=== PATIENT | female | born 1935 | race Caucasian/White ===

== ENCOUNTER 2018-07-17 13:01 | Inpatient (IN) | payer MEDICARE, OTHER ==
[~2018-07-17] VITALS: Ht 157.5 cm; Wt 102.5 kg
--- NOTE | 2018-07-17 13:12 | ERD ---
ER Documentation Chief Complaint Chief Complaint Generalized weakness HPI The patient is a 82-year-old female, in the ER because of generalized weakness intermittently for the last couple days, worse today, complains of black stool for the last couple days. She recently had an upper endoscopy last week that did not show any significant findings according to her daughter. She denies fever, chills, cough, neck pain, chest pain, complains of dyspnea on exertion, denies abdominal pain, vomiting, dysuria, diarrhea. Medical history: Atrial fibrillation, diabetes mellitus, hypertension, dyslipidemia, CAD Past surgical history: None ROS All systems reviewed and are negative except as per history of present illness. Medications Home Meds Reported Medications Zolpidem Tartrate* (Zolpidem Tartrate*) 10 Mg Tablet, 10 MG PO QHS PRN for INSOMNIA, #30 TAB 07/17/18 Insulin Lispro (Humalog Kwikpen U-100) 100 Unit/1 Ml Insuln.pen, 8 UNIT SQ BID WITH MEALS, EA 07/17/18 Insulin Glargine* (Lantus*) 100 Unit/Ml Soln, 44 UNIT SC QHS, #1 VIAL 07/17/18 Furosemide* (Furosemide*) 80 Mg Tablet, 80 MG PO DAILY, #30 TAB 07/17/18 Metolazone* (Metolazone*) 5 Mg Tablet, 5 MG PO DAILY, TAB 07/17/18 Potassium Chloride* (K-Dur*) 10 Meq Tab.prt.sr, 10 MEQ PO DAILY, TAB 07/17/18 Alprazolam* (Alprazolam*) 0.5 Mg Tablet, 0.5 MG PO QHS PRN for ANXIETY, TAB 07/17/18 Atorvastatin Calcium* (Atorvastatin Calcium*) 20 Mg Tablet, 20 MG PO QHS, #30 TAB 07/17/18 Ferrous Sulfate* (Ferrous Sulfate*) 325 Mg Tabec, 325 MG PO BID, TAB 07/17/18 Sertraline Hcl* (Sertraline Hcl*) 50 Mg Tablet, 50 MG PO DAILY, #30 TAB 07/17/18 Carvedilol* (Carvedilol*) 3.125 Mg Tablet, 3.125 MG PO BID, #60 TAB 07/17/18 Pantoprazole* (Protonix*) 40 Mg Tablet.dr, 40 MG PO DAILY, TAB 07/17/18 Allergies Allergies: Coded Allergies: No Known Allergy (Unverified , 07/17/18) Physical Exam Vitals Vital Signs Date Temp Pulse Resp B/P (MAP) Pulse Ox O2 O2 Flow FiO2 Time Delivery Rate 07/17/18 98.2 89 18 123/43 94 13:37 (69) 07/17/18 84 18 123/43 98 Nasal 13:10 (69) Cannula Physical Exam Const: No acute distress. Head: Atraumatic. Eyes: Normal Conjunctiva. ENT: Normal External Ears, Nose and Mouth. Neck: Full range of motion. No meningismus. Resp: Irregularly irregular. Cardio: Regular rate and rhythm. Abd: Soft, non distended, normal bowel sounds, non tender. Skin: No petechiae or rashes. Back: No midline or flank tenderness. Ext: Mild Bilateral leg edema, no calf tenderness Neur: Awake and alert. No focal deficit Psych: Normal Mood and Affect. Result Diagram: 07/17/18 1345 07/17/18 1345 Results 24 hrs Laboratory Tests Test 07/17/18 13:45 White Blood Count 7.2 10^3/ul Red Blood Count 2.78 10^6/ul Hemoglobin 6.9 g/dl Hematocrit 23.5 % Mean Corpuscular Volume 84.5 fl Mean Corpuscular Hemoglobin 24.8 pg Mean Corpuscular Hemoglobin Concent 29.4 g/dl Red Cell Distribution Width 14.8 % Platelet Count 336 10^3/UL Mean Platelet Volume 11.4 fl Immature Granulocytes % 0.400 % Neutrophils % 63.2 % Segmented Neutrophils % (Manual) 68 % Lymphocytes % 18.8 % Lymphocytes % (Manual) 18 % Reactive Lymphocytes % (Manual) 2 % Monocytes % 13.8 % Monocytes % (Manual) 11 % Eosinophils % 3.1 % Eosinophils % (Manual) 1 % Basophils % 0.7 % Nucleated Red Blood Cells % 0.0 /100WBC Immature Granulocytes # 0.030 10^3/ul Neutrophils # 4.6 10^3/ul Lymphocytes (Manual) 1.2 10^3/ul Lymphocytes # 1.4 10^3/ul Reactive Lymphocytes # 0.1 10^3/ul Monocytes # 1.0 10^3/ul Monocytes # (Manual) 0.7 10^3/ul Eosinophils # 0.2 10^3/ul Basophils # 0.1 10^3/ul Nucleated Red Blood Cells # 0.0 10^3/ul White Cell Morphology Comment @See below Platelet Estimate NORMAL Giant Platelets 8 % Polychromasia 3+ Hypochromasia 3+ Poikilocytosis 1+ Anisocytosis 1+ Microcytosis 1+ Red Cell Morphology Comment @See below Prothrombin Time 14.1 Sec Prothrombin Time Ratio 1.1 INR International Normalized Ratio 1.08 Activated Partial Thromboplast Time 30.1 Sec Sodium Level 139 mmol/L Potassium Level 3.6 mmol/L Chloride Level 93 mmol/L Carbon Dioxide Level 35 mmol/L Anion Gap 11 Blood Urea Nitrogen 80 mg/dl Creatinine 2.04 mg/dl Est Glomerular Filtrat Rate mL/min mL/min Glucose Level 177 mg/dl Calcium Level 8.8 mg/dl Troponin I < 0.012 ng/ml B-Type Natriuretic Peptide 6120 PG/ML Free Thyroxine 2.07 ng/dl Procedures/[place] [address] Radiology Main Line: [phone] DIAGNOSTIC IMAGING REPORT Patient: TYLOR COLEMAN : 1935 Age: 82 Sex: F MR #: [id number] DOS: 07/17/18 1331 Ordering MD: DULCE ESTRADA MD Location: E/R Room/Bed: PROCEDURE: XR Chest. CLINICAL INDICATION: Shortness of breath TECHNIQUE: An AP view of the chest was obtained. COMPARISON: CR CHEST 11/22/2017; CR CHEST 11/07/2017; SD DX CHEST 11/04/2017; SD CR CHEST 08/31/2017; SD CR CHEST 08/30/2017; SD DX CHEST 01/19/2015 FINDINGS: There is prominence of the interstitial and central pulmonary vascular markings with small bilateral pleural effusions. No focal airspace opacification or pneumothorax is seen. The cardiomediastinal silhouette is mildly enlarged. Calcifications are seen within the aortic arch. The osseous structures demonstrate senescent changes. IMPRESSION: 1. Findings suggestive of pulmonary vascular congestion with small bilateral pleural effusions. Findings are mildly increased when compared to the prior examination. 2. Mild cardiomegaly and aortic atherosclerosis. RPTAT: HH .Aarti Dumont MD, MD Date Time Electronically viewed and signed by .Aarti Dumont MD, MD on 07/17/2018 14:24 .G/ CC: DULCE ESTRADA MD [phone] EKG: Read by emergency physician Rate/Rhythm: Atrial fibrillation 81 beats/min QRS, ST, T-waves: No ST elevation, RWA, low voltage, nonspecific T abnormality Impression: Abnormal EKG MEDICAL MAKING DECISION: The patient is a 82-year-old female, presenting with acute GI bleed, acute CHF, acute kidney injury. She was treated with 2 unit of packed red blood cell for acute GI bleed, she would require Lasix in between and after blood transfusion The differential diagnoses considered include but are not limited to gi bleed, asthma, COPD, pneumonia, pulmonary embolus, pleural effusion, congestive heart failure. Departure Diagnosis: Primary Impression: GI bleed Additional Impressions: CHF (congestive heart failure) JAIRON (acute kidney injury) Anemia Condition: Stable Comments I discussed the findings with the patient. I discussed the patient with the hospitalist Xavi at 3:10 pm who was made aware of the lab, the treatment, the patient condition. The patient is admitted to Tel Disclaimer: Inadvertent spelling and grammatical errors are likely due to EHR/dictation software use and do not reflect on the overall quality of patient care. Also, please note that the electronic time recorded on this note does not necessarily reflect the actual time of the patient encounter. DULCE ESTRADA MD Jul 17, 2018 13:12
[2018-07-17] MEDS ORDERED: CARV3.1260 PO (13:56)
[2018-07-17] MEDS ORDERED: PANT40TA3 PO (13:56)
[2018-07-17] MEDS ORDERED: SERT50TA6 PO (13:57)
[2018-07-17] MEDS ORDERED: FER325 PO (13:57)
[2018-07-17] MEDS ORDERED: ATOR20TA38 PO (13:57)
[2018-07-17] MEDS ORDERED: POTA10TA37 PO (13:58)
[2018-07-17] MEDS ORDERED: ALPR0.5T6 PO (13:58)
[2018-07-17] MEDS ORDERED: METO5TAB65 PO (13:58)
[2018-07-17] MEDS ORDERED: FURO80TA3 PO (13:59)
[2018-07-17] MEDS ORDERED: INSU100I12 SQ (13:59)
[2018-07-17] MEDS ORDERED: LANT3I SC (13:59)
[2018-07-17] MEDS ORDERED: ZOLP10TA5 PO (14:00)
[2018-07-17] MEDS ORDERED: ONDANSETRON 4 MG INJ IV PRN (15:30)
[2018-07-17] MEDS ORDERED: ALPRAZOLAM 0.5 MG TAB PO PRN (15:30)
[2018-07-17] MEDS ORDERED: ALBUTEROL/IPRATROPIUM (NEB) 3 ML AMP HHN PRN (15:30)
[2018-07-17] MEDS ORDERED: NITROGLYCERIN (SL) 0.4 MG TAB SL PRN (15:30)
[2018-07-17] MEDS ORDERED: LORAZEPAM 2 MG INJ IV PRN (15:30)
[2018-07-17] MEDS ORDERED: MAGNESIUM HYDROXIDE 30ML CUP PO PRN (15:30)
[2018-07-17] MEDS ORDERED: DOCUSATE SODIUM 100 MG CAP PO PRN (15:30)
[2018-07-17] MEDS ORDERED: HYDROCODONE/APAP (5/325) TAB PO PRN (15:30)
[2018-07-17] MEDS ORDERED: ACETAMINOPHEN 325 MG TAB PO PRN (15:30)
[2018-07-17] MEDS ORDERED: NACL 0.9% 3 ML SYG IV SCH (15:30)
[2018-07-17] MEDS ORDERED: ZOLPIDEM 5 MG TAB PO PRN (15:30)
[2018-07-17] MEDS ORDERED: morphine 2 MG INJ IV PRN (15:30)
[2018-07-17] MEDS ORDERED: hydrALAzine 20 MG INJ IV PRN (15:30)
--- NOTE | 2018-07-17 16:21 | HP ---
DATE OF ADMISSION: 07/17/2018 IDENTIFICATION: This is an 82-year-old. CHIEF COMPLAINT: Sent in for anemia. HISTORY OF PRESENT ILLNESS: An 82-year-old female with past medical history of diabetes, history of gastric ulcer with 6 EGDs done in the last year for bleeding gastric ulcer apparently, high cholester ol, CHF. The patient was sent in because of abnormal hemoglobin in blood test which was performed 2 days ago at home. The patient states she had EGD performed 10 days ago in [place] by Dr. Edgar. Th is was because of a bleeding gastric ulcer that was lasered treated according to the patient. Since that time, she has been having off and on dark stools, but no upper GI bleeding, no fevers or chills or nausea, vomiting, diarrhea or constipation. No chest pain or shortness of breath. She has had, h owever, positive lower extremity swelling as well. When she had the blood test done at home 48 hours ago, the results came back and she was told to come to the ER because of low hemoglobin. When she a rrived today to the ER, her hemoglobin today is 6.9. She has been ordered for 2 units PRBC transfusi on today. She was also found with BNP of 6000 and chest x-ray shows signs of pulmonary vascular melquiades estion as well. Her creatinine today is 2.04. The patient denies any prior history of any strokes o r heart attacks, no prior history of any kidney problems. She has had multiple blood transfusions in the past for anemia. Again, she states she has had [address] Edgar in the last year for the shea e gastric bleeding ulcer each time treated with laser. PAST MEDICAL HISTORY: As stated above. ALLERGIES: NO KNOWN DRUG ALLERGIES. HOME MEDICATIONS: 1. Atorvastatin 20 mg. 2. Ferrous sulfate 325 mg b.i.d. 3. Coreg 3.125 mg b.i.d. 4. Alprazolam 0.5 mg p.o. at bedtime p.r.n. 5. Sertraline 50 mg daily. 6. Ambien 10 mg at bedtime p.r.n. 7. Lasix 80 mg p.o. daily. 8. Metolazone 5 mg daily. 9. K-Dur 10 mEq daily. 10. Protonix 40 mg p.o. daily. 11. Lantus 44 units at bedtime. 12. Lispro 8 units b.i.d. with meals. PAST SURGICAL HISTORY: Breast lump surgery. FAMILY HISTORY: Noncontributory. SOCIAL HISTORY: Negative for smoking, drinking or IV drug abuse. PHYSICAL EXAMINATION: VITAL SIGNS: T-max 98.2, pulse 89, respirations 18, blood pressure 123/43, satting at 94% on room ai r. GENERAL: The patient is lying in bed, family members at the bedside, in no acute distress. HEENT: Pupils are equal, round, reactive to light. Extraocular muscles are intact. NECK: Supple. No thyromegaly. LUNGS: Clear to auscultation bilaterally. CARDIOVASCULAR: S1, S2 heard. No rubs or gallops. ABDOMEN: Soft, nontender, nondistended, normal bowel sounds, no rebound or guarding. MUSCULOSKELETAL: A 1 to 2+ pitting edema bilateral lower extremities to the mid calves. NEUROLOGIC: No focal deficits. LABORATORIES: WBC 7.2, hemoglobin 6.9, hematocrit 23.5, platelets 336. Sodium 139, potassium 3.6, c hloride 93, CO2 of 35, BUN 80, creatinine 2.04, glucose 177. BNP 6120. Troponin is negative x1. Co ags are normal. DIAGNOSTIC DATA: Chest x-ray again shows pulmonary vascular congestion with small bilateral pleural effusions, mild cardiomegaly, aortic atherosclerosis. ASSESSMENT AND PLAN: An 82-year-old female coming in with anemia, likely secondary to gastrointestin al bleed, also signs of acute tubular injury, acute congestive heart failure exacerbation. 1. Anemia: Again likely secondary to gastrointestinal bleed given the patient's prior history of ga stric ulcer and 6 EGDs in the last year for treatment of this. Admit the patient, order 2 units PRBC transfusion. Follow up TSH, A1c, lipid panel. Also, get GI consult as well. Get PT, OT and speech therapy consult. Consider ordering stool occult test. The patient likely will need another EGD. W e will discuss with the GI team as well. Hold all anticoagulants. Hold off on IV fluids at this mandie e given the fact the patient is in acute congestive heart failure. Follow up CBC in the morning post -transfusion. 2. Acute kidney injury. Again, the patient denies any prior history of kidney issues. She is on 80 mg of Lasix p.o. daily. Given the patient is in congestive heart failure exacerbation, we will go a head and cautiously order Lasix IV b.i.d. for now. Monitor ins and outs. Insert Muhammad catheter and monitor urine output. Again, we will get renal consult as well. Monitor BUN and creatinine levels. 3. Congestive heart failure. Again, BNP 6000. The patient does see Dr. Alcantara in [place] for treatme nt of congestive heart failure in the past. No prior history of any stroke or heart attack per patie nt. We are going to keep the bed head of the bed greater than 30 degrees. Monitor ins and outs and daily weights. Keep her on low-dose beta elliott and low-dose IV Lasix, morphine p.r.n., oxygen as n eeded. Nitroglycerin p.r.n. PT and OT consults. Get a cardiology consult. Order a 2D echocardiogr am as well. 4. History of high cholesterol. Follow up lipid panel. Continue statin. 5. History of diabetes. Follow up A1c. Continue home insulins and add sliding scale insulin. 6. Deep venous thrombosis prophylaxis. Hold all anticoagulants. Order SCDs. Dictated By: KARYN MEDINA/ANGEL Conf#: [id number] DID#: [id number] CC: DULCE ESTRADA MD; LANDON LEVI DO;*EndCC*
[2018-07-17] MEDS ORDERED: GLUCOSE GEL 15 GRAM TUBE BUCCAL PRN (16:30)
[2018-07-17] MEDS ORDERED: GLUCAGON 1 MG INJ IM PRN (16:30)
[2018-07-17] MEDS ORDERED: GLUCOSE GEL 15 GRAM TUBE PO PRN ×2 (16:30)
[2018-07-17] MEDS ORDERED: DEXTROSE 50% 50 ML SYRINGE IV PRN ×2 (16:30)
--- NOTE | 2018-07-17 16:30 | CONS ---
Assessment/Plan Assessment/Plan Hospital Course (Demo Recall) Summary Assessment and Plan: Assessment: Severe Recurrent UGIB from same gastric ulcer - With multiple EGD Renal insufficiency CHF HTN DM Plan: PPI /Carafate 2 units PRBCs- ordered Monitor H/H and assess for overt signs of GI bleed Patient/Family currently decline EGD- would like to give blood, monitor over night, and reassess tomorrow for possible EGD in near future 2D echo pending Cardiology/Nephrology have been consulted Patient seen in collaboration with Dr. Snyder CC: KERWIN SNYDER MD ; Consultation Date/Type/Reason Admit Date/Time Date of Consultation: Jul 17, 2018 Type of Consult GI Reason for Consultation Severe anemia/melena Date/Time of Note DATE: 07/17/18 TIME: 16:06 Hx of Present Illness This is an 82 year old female with PMH of CFH, DM, HTN, and recurrent UGIB from same gastric ulcer, who presented to the ED with severe anemia and melena x7 days. She has apparently had 6-7 EGDs in the past year, with the last EGD being about 10 days ago with intervention to stop gastric ulcer bleeding. Labs drawn h ere show hemoglobin 6.9, hematocrit 23.5, MCV 84.5, MCH 24.8. GI has been consulted to rule out upper GI bleed. At time evaluation patient is resting in bed in no apparent distress. with daughter at bedside. Pt denies n/v, abd pain, or hematochezia. I discussed recommendations for EGD. Daughter and patient currently declined to move forward with EGD and instead would like to transfuse blood overnight, monitor, and reassess tomorrow for possible need for endoscopic evaluation/intervention in near future. Review of Systems: A 12 system, review was conducted and is negative except as noted in the HPI or here. Past Medical History Home Meds Reported Medications Zolpidem Tartrate* (Zolpidem Tartrate*) 10 Mg Tablet, 10 MG PO QHS PRN for INSOMNIA, #30 TAB 07/17/18 Insulin Lispro (Humalog Kwikpen U-100) 100 Unit/1 Ml Insuln.pen, 8 UNIT SQ BID WITH MEALS, EA 07/17/18 Insulin Glargine* (Lantus*) 100 Unit/Ml Soln, 44 UNIT SC QHS, #1 VIAL 07/17/18 Furosemide* (Furosemide*) 80 Mg Tablet, 80 MG PO DAILY, #30 TAB 07/17/18 Metolazone* (Metolazone*) 5 Mg Tablet, 5 MG PO DAILY, TAB 07/17/18 Potassium Chloride* (K-Dur*) 10 Meq Tab.prt.sr, 10 MEQ PO DAILY, TAB 07/17/18 Alprazolam* (Alprazolam*) 0.5 Mg Tablet, 0.5 MG PO QHS PRN for ANXIETY, TAB 07/17/18 Atorvastatin Calcium* (Atorvastatin Calcium*) 20 Mg Tablet, 20 MG PO QHS, #30 TAB 07/17/18 Ferrous Sulfate* (Ferrous Sulfate*) 325 Mg Tabec, 325 MG PO BID, TAB 07/17/18 Sertraline Hcl* (Sertraline Hcl*) 50 Mg Tablet, 50 MG PO DAILY, #30 TAB 07/17/18 Carvedilol* (Carvedilol*) 3.125 Mg Tablet, 3.125 MG PO BID, #60 TAB 07/17/18 Pantoprazole* (Protonix*) 40 Mg Tablet.dr, 40 MG PO DAILY, TAB 07/17/18 Medications Current Medications IV Flush (NS 3 ml) 3 ml PER PROTOCOL IV ; Start 07/17/18 at 15:30; Status UNV Ondansetron HCl (Zofran Inj) 4 mg Q6H PRN IV NAUSEA/VOMITING; Start 07/17/18 at 15:30 Acetaminophen (Tylenol Tab) 650 mg Q6H PRN PO .PAIN 1-3 OR TEMP; Start 07/17/18 at 15:30 Acetaminophen/ Hydrocodone Bitart ([place] (5/325)) 1 tab Q6H PRN PO .MOD PAIN 4- 6; Start 07/17/18 at 15:30 Morphine Sulfate (morphine) 2 mg Q4H PRN IV .SEVERE PAIN 7-10; Start 07/17/18 at 15:30 Docusate Sodium (Colace) 100 mg Q12H PRN PO .CONSTIPATION; Start 07/17/18 at 15:30 Magnesium Hydroxide (Milk Of Mag) 30 ml DAILY PRN PO .CONSTIPATION; Start 07/17/18 at 15:30; Status UNV Lorazepam (Ativan) 0.5 mg Q6H PRN IV ANXIETY; Start 07/17/18 at 15:30 Albuterol/ Ipratropium (Duoneb) 3 ml Q4H RESP THERAPY PRN HHN SHORTNESS OF BREATH; Start 07/17/18 at 15:30 Hydralazine HCl (Apresoline) 10 mg Q6H PRN IV ELEVATED BLOOD PRESSURE; Start 07/17/18 at 15:30 Nitroglycerin (Nitroglycerin (Sl Tab) 0.4 Mg) 1 tab Q5M PRN SL ANGINA; Start 07/17/18 at 15:30 Miscellaneous Information (* Miscellaneous Pharmacy Order) Discontinue current oral sulfonylur... ONCE ONCE XX ; Start 07/17/18 at 15:30; Stop 07/17/18 at 15:31; Status UNV Diagnostic Test (Pha) (Accu-Chek) 1 ea 02 XX ; Start 07/18/18 at 02:00 Miscellaneous Information (* Miscellaneous Pharmacy Order) HYPOGLYCEMIA PROTOCOL w... ONCE ONCE XX ; Start 07/17/18 at 15:30; Stop 07/17/18 at 15:31; Status UNV Insulin Aspart (Novolog Insulin Pen) NOVOLOG *MILD* ALGORI... Q4 SC ; Start 07/17/18 at 17:00; Status UNV Miscellaneous Information (* Miscellaneous Pharmacy Order) Discontinue all pr uzma... ONCE ONCE XX ; Start 07/17/18 at 15:30; Stop 07/17/18 at 15:31; Status UNV Alprazolam (Xanax) 0.5 mg QHS PRN PO ANXIETY; Start 07/17/18 at 15:30 Atorvastatin Calcium (Lipitor) 20 mg QHS PO ; Start 07/17/18 at 21:00 Carvedilol (Coreg) 3.125 mg BID PO ; Start 07/17/18 at 21:00 Ferrous Sulfate (Ferrous Sulfate (Ec)) 325 mg BID PO ; Start 07/17/18 at 21:00 Insulin Glargine (Lantus) 44 units QHS SC ; Start 07/17/18 at 21:00 Metolazone (Zaroxolyn) 5 mg DAILY PO ; Start 07/18/18 at 09:00; Status UNV Pantoprazole (Protonix Tab) 40 mg DAILY@0600 PO ; Start 07/18/18 at 06:00 Potassium Chloride (Klor-Con 10) 10 meq DAILY PO ; Start 07/18/18 at 09:00 Zolpidem Tartrate (Ambien) 10 mg QHS PRN PO INSOMNIA; Start 07/17/18 at 15:30 Miscellaneous Information 8 unit BID WITH MEALS SQ ; Start 07/17/18 at 18:00; Status UNV Furosemide (Lasix) 40 mg BID DIURETICS IV ; Start 07/17/18 at 18:00 Allergies: Coded Allergies: No Known Allergy (Unverified , 07/17/18) Social History Smoking Status: Never smoker Exam/Review of Systems Exam Vitals Vital Signs Date Temp Pulse Resp B/P (MAP) Pulse Ox O2 O2 Flow FiO2 Time Delivery Rate 07/17/18 98.2 89 18 123/43 94 13:37 (69) Exam PHYSICAL EXAMINATION: GENERAL: Alert & oriented x 3, in no acute distress SKIN: No lesions EYES: Pupils equal reactive to light NECK: Supple, no masses CHEST: Inspection within normal limits. CARDIOVASCULAR: Heart: Regular rate and rhythm RESPIRATORY: Lungs clear to auscultation and percussion, no wheezing, no rubs GASTROINTESTINAL AND LIVER: Abdomen: Soft, non tenderness, non-distended, no hernias, no masses, no organomegaly, no ascites, no guarding, no rebound tenderness, normoactive bowel sounds. Rectal: Deferred. EXTREMITIES: BLE edema Results Result Diagram: 07/17/18 1345 07/17/18 1345 Results 24hrs Laboratory Tests Test 07/17/18 13:45 White Blood Count 7.2 Red Blood Count 2.78 L Hemoglobin 6.9 *L Hematocrit 23.5 L Mean Corpuscular Volume 84.5 Mean Corpuscular Hemoglobin 24.8 L Mean Corpuscular Hemoglobin Concent 29.4 L Red Cell Distribution Width 14.8 H Platelet Count 336 Mean Platelet Volume 11.4 H Immature Granulocytes % 0.400 Neutrophils % 63.2 Segmented Neutrophils % (Manual) 68 Lymphocytes % 18.8 Lymphocytes % (Manual) 18 Reactive Lymphocytes % (Manual) 2 H Monocytes % 13.8 H Monocytes % (Manual) 11 Eosinophils % 3.1 Eosinophils % (Manual) 1 Basophils % 0.7 Nucleated Red Blood Cells % 0.0 Immature Granulocytes # 0.030 Neutrophils # 4.6 Lymphocytes (Manual) 1.2 Lymphocytes # 1.4 Reactive Lymphocytes # 0.1 H Monocytes # 1.0 H Monocytes # (Manual) 0.7 Eosinophils # 0.2 Basophils # 0.1 Nucleated Red Blood Cells # 0.0 White Cell Morphology Comment @See below Platelet Estimate NORMAL Giant Platelets 8 H Polychromasia 3+ Hypochromasia 3+ Poikilocytosis 1+ Anisocytosis 1+ Microcytosis 1+ Red Cell Morphology Comment @See below Prothrombin Time 14.1 Prothrombin Time Ratio 1.1 INR International Normalized Ratio 1.08 Activated Partial Thromboplast Time 30.1 Sodium Level 139 Potassium Level 3.6 Chloride Level 93 L Carbon Dioxide Level 35 H Anion Gap 11 Blood Urea Nitrogen 80 H Creatinine 2.04 H Est Glomerular Filtrat Rate mL/min Glucose Level 177 Calcium Level 8.8 Troponin I < 0.012 B-Type Natriuretic Peptide 6120 H Medications Medication Current Medications IV Flush (NS 3 ml) 3 ml PER PROTOCOL IV ; Start 07/17/18 at 15:30; Status UNV Ondansetron HCl (Zofran Inj) 4 mg Q6H PRN IV NAUSEA/VOMITING; Start 07/17/18 at 15:30 Acetaminophen (Tylenol Tab) 650 mg Q6H PRN PO .PAIN 1-3 OR TEMP; Start 07/17/18 at 15:30 Acetaminophen/ Hydrocodone Bitart ([place] (5/325)) 1 tab Q6H PRN PO .MOD PAIN 4- 6; Start 07/17/18 at 15:30 Morphine Sulfate (morphine) 2 mg Q4H PRN IV .SEVERE PAIN 7-10; Start 07/17/18 at 15:30 Docusate Sodium (Colace) 100 mg Q12H PRN PO .CONSTIPATION; Start 07/17/18 at 15:30 Magnesium Hydroxide (Milk Of Mag) 30 ml DAILY PRN PO .CONSTIPATION; Start 07/17/18 at 15:30; Status UNV Lorazepam (Ativan) 0.5 mg Q6H PRN IV ANXIETY; Start 07/17/18 at 15:30 Albuterol/ Ipratropium (Duoneb) 3 ml Q4H RESP THERAPY PRN HHN SHORTNESS OF BREATH; Start 07/17/18 at 15:30 Hydralazine HCl (Apresoline) 10 mg Q6H PRN IV ELEVATED BLOOD PRESSURE; Start 07/17/18 at 15:30 Nitroglycerin (Nitroglycerin (Sl Tab) 0.4 Mg) 1 tab Q5M PRN SL ANGINA; Start 07/17/18 at 15:30 Miscellaneous Information (* Miscellaneous Pharmacy Order) Discontinue current oral sulfonylur... ONCE ONCE XX ; Start 07/17/18 at 15:30; Stop 07/17/18 at 15:31; Status UNV Diagnostic Test (Pha) (Accu-Chek) 1 ea 02 XX ; Start 07/18/18 at 02:00 Miscellaneous Information (* Miscellaneous Pharmacy Order) HYPOGLYCEMIA PROTOCOL w... ONCE ONCE XX ; Start 07/17/18 at 15:30; Stop 07/17/18 at 15:31; Status UNV Insulin Aspart (Novolog Insulin Pen) NOVOLOG *MILD* ALGORI... Q4 SC ; Start 07/17/18 at 17:00; Status UNV Miscellaneous Information (* Miscellaneous Pharmacy Order) Discontinue all previ... ONCE ONCE XX ; Start 07/17/18 at 15:30; Stop 07/17/18 at 15:31; Status UNV Alprazolam (Xanax) 0.5 mg QHS PRN PO ANXIETY; Start 07/17/18 at 15:30 Atorvastatin Calcium (Lipitor) 20 mg QHS PO ; Start 07/17/18 at 21:00 Carvedilol (Coreg) 3.125 mg BID PO ; Start 07/17/18 at 21:00 Ferrous Sulfate (Ferrous Sulfate (Ec)) 325 mg BID PO ; Start 07/17/18 at 21:00 Insulin Glargine (Lantus) 44 units QHS SC ; Start 07/17/18 at 21:00 Metolazone (Zaroxolyn) 5 mg DAILY PO ; Start 07/18/18 at 09:00; Status UNV Pantoprazole (Protonix Tab) 40 mg DAILY@0600 PO ; Start 07/18/18 at 06:00 Potassium Chloride (Klor-Con 10) 10 meq DAILY PO ; Start 07/18/18 at 09:00 Zolpidem Tartrate (Ambien) 10 mg QHS PRN PO INSOMNIA; Start 07/17/18 at 15:30 Miscellaneous Information 8 unit BID WITH MEALS SQ ; Start 07/17/18 at 18:00; Status UNV Furosemide (Lasix) 40 mg BID DIURETICS IV ; Start 07/17/18 at 18:00 ENZO CORLEY Jul 17, 2018 16:18
[2018-07-17] MEDS: INSULIN ASPART [NOVOLOG] 3 ML PEN SC SCH ×2 (17:00→21:30)
[2018-07-17] MEDS ORDERED: INSULIN ASPART [NOVOLOG] 3 ML PEN SC SCH (17:30)
[2018-07-17 18:30] VITALS: BP 116/56; PULSE 75; RESP 18
--- NOTE | 2018-07-17 18:33 | RADRPT ---
Echocardiogram Report Patient Name: TYLOR COLEMANPatient ID: [id number] : 1935 (82y 11m)Study Date: 07/17/2018 3:54:05 PM Gender: FAccession #: [id number] Tech: [facility] Location: [facility] Ref.Physician: KARYN NAVARRO Height(Cm): BSA: Weight(Kg): Quality: Technically Difficult StudyAccount #: Procedures: Echocardiographic Report: Transthoracic echocardiogram with complete 2D, M-Mode, and doppler examination. Indications: Congestive Heart Failure, Anemia. Measurements: 2D/M Mode Doppler Measurement Value Normal Range Measurement Value Normal Range LVIDd 2D 4.0 [ 3.8 - 5.2 ] cm ERYN VTI 0.7 [ 2.0 - 4.0 ] cm2 LVIDs 2D 2.9 [ 2.2 - 3.5 ] cm AV Mean Jeremy 2.6 [ 70.0 - 90.0 ] cm/sec LVPWd 2D 1.2 [ 0.6 - 0.9 ] cm AV Mean PG 31.0 [ 2.0 - 4.0 ] mmHg IVSd 2D 1.3 [ 0.6 - 0.9 ] cm AV VTI 84.1 cm AoR Diam 2D 2.7 [ 2.3 - 3.1 ] cm LVOT Mean Jeremy 0.5 [ 60.0 - 80.0 ] cm/sec EDV 2D 68.3 [ 46.0 - 106.0 ] ml LVOT Mean PG 1.0 [ 1.0 - 3.0 ] mmHg ESV 2D 32.2 [ 14.0 - 42.0 ] ml LVOT Peak Jeremy 0.8 [ 70.0 - 110.0 ] cm/sec EF 2D 52.9 [ 54.0 - 74.0 ] percent LVOT Peak PG 3.0 [ 2.0 - 6.0 ] mmHg LA Dimen 2D 4.1 [ 2.7 - 3.8 ] cm LVOT VTI 20.9 [ 20.0 - 30.0 ] cm LVOT Diam 1.9 [ 2.1 - 2.5 ] cm MV E Peak Jeremy 1.3 [ 60.0 - 130.0 ] cm/sec MV A Peak Jeremy 0.2 [ 100.0 - 120.0 ] cm/sec MV E/A 6.0 [ 0.8 - 1.5 ] ratio MV Decel Time 218 [ 104 - 258 ] msec Lat E` Jeremy 0.1 [ 10.0 - 15.0 ] cm/sec Lateral E/E` 14.4 [ 1.0 - 2.0 ] ratio Med E` Jeremy 0.1 cm/sec MV E/A 6.0 [ 0.8 - 1.5 ] ratio TR Peak Jeremy 2.7 [ 100.0 - 280.0 ] cm/sec TR Peak PG 29.0 mmHg RVSP 44.0 [ 10.0 - 36.0 ] mmHg Findings: Left Ventricle: Normal left ventricular systolic function. Normal left ventricular cavity size. Mild concentric left ventricular hypertrophy. Ejection fraction is visually estimated at 55 %. Tissue Doppler/Mitral Doppler indices are indeterminate in this study due to the presence of atrial fibrillation. Right Ventricle: Normal right ventricular size. Normal right ventricular systolic function. Left Atrium: There is mild enlargement of left atrium. Right Atrium: There is mild enlargement of right atrium. Mitral Valve: Mild mitral leaflet calcification. Mild mitral annular calcification. Trace mitral regurgitation. Aortic Valve: Severe aortic stenosis. Aortic valve Max velocity 3.50 m/sec. Max PG 49.00 mmHg. Mean PG 31.00 mmHg. Aortic valve area 0.71 cm2. Aortic cusps appear moderately calcified. Tricuspid Valve: Normal appearance of the tricuspid valve. Estimated peak PA systolic pressure 44 mmHg. There is mild tricuspid regurgitation. Pulmonic Valve: Pulmonic valve not well visualized. Pericardium: Normal pericardium with no significant pericardial effusion. Aorta: Normal aortic root. IVC: Dilated inferior vena cava with poor inspiratory collapse consistent with elevated right atrial pressures. Conclusions: Technically difficult study. Mild concentric left ventricular hypertrophy with normal systolic function. Mild biatrial enlargement. Severe calcific aortic stenosis, peak and mean gradients of 49 and 31 mmHg, calculated valve area 0.71 cm2. Mild tricuspid regurgitation and mild pulmonary hypertension. Dilated IVC that does not collapse consistent with elevated right atrial pressures. Electronically Signed By: Gwendolyn Harris 2018-07-17 18:32:51 PDT
--- NOTE | 2018-07-17 18:38 | CONS ---
DATE OF ADMISSION: 07/17/2018 DATE OF CONSULTATION: 07/17/2018 TYPE OF CONSULTATION: Nephrology. REASON FOR CONSULTATION: Acute kidney injury. PHYSICIAN REQUESTING CONSULT: Karyn Navarro MD HISTORY OF PRESENT ILLNESS: This is an 82-year-old female with past medical history of diabetes, his tory of gastric ulcer, history of dyslipidemia, CHF, history of obesity, who presents to [facility] for evaluation of anemia. The patient states she had an EGD approximately 10 days a go in [place]. The patient was found to have a bleeding gastric ulcer. The patient was subsequentl y discharged home. The patient since that time has been having melenic stools, no upper GI bleed. T he patient, however, was noted to have worsening lower extremity edema. As a result, she came back t o the emergency room. Upon arrival, she had a hemoglobin of 6.9. The patient was typed and crossed and transfused 2 units of PRBC. The patient had a chest x-ray which also showed evidence of pulmonar y vascular congestion and BNP of 6000, creatinine 2.0 mg/dL. In terms of patient's renal history, the patient's family denies any prior history of acute kidney in jury or CKD. Denies any hemoptysis, hematemesis. Denies any rashes, any frothy urine, any hematuria . PAST MEDICAL HISTORY: As stated above, history of diabetes, history of peptic ulcer disease, history of dyslipidemia, CHF, obesity. PAST SURGICAL HISTORY: The patient is status post lump surgery of the right breast. FAMILY HISTORY: Noncontributory. SOCIAL HISTORY: Does not drink, smoke or do drugs. MEDICATIONS: Have been reviewed. REVIEW OF SYSTEMS: A 14-point review of systems conducted. Pertinent positives stated in HPI, other ghotra negative. PHYSICAL EXAMINATION: VITAL SIGNS: Blood pressure is 125/76, respirations 16, pulse 89, temperature 98.2. HEENT: Head is normocephalic. Pupils are equal, reactive to light. NECK: Supple. HEART: Regular rate. LUNGS: Show diminished breath sounds at base. ABDOMEN: Obese, soft. Mild tenderness to palpation in mid epigastric region. EXTREMITIES: Negative for clubbing, cyanosis. Trace edema. DERMATOLOGIC: No rashes. MUSCULOSKELETAL: No joint effusion. NEUROLOGIC: No change in exam. LABORATORY DATA: Show white count 7.2, hemoglobin 6.9, platelet count is 336. Sodium 139, potassium 3.6, chloride 80, creatinine 2.04. BNP 6000. IMAGING STUDIES: As stated in HPI. ASSESSMENT AND PLAN: This is aN 82-year-old female who presents with: 1. Nonoliguric acute kidney injury with unknown baseline creatinine. Etiology of acute kidney injur y is unclear, possibly due to hemodynamics, cardiorenal syndrome. Other possibility such as tubular injury due to severe anemia is a consideration. Plan at this point is to do a full evaluation. We w ill check UA with microanalysis, check urine electrolytes, calculate fractional excretion of urea. W e will check a renal ultrasound to rule out obstruction. We would otherwise continue current treatme nt plan, supportive care, renally dose all meds. Monitor renal function closely on current diuretic regimen. If renal function should decline, we would consider deescalating or holding diuretic therap y. 2. Anemia. Etiology may be secondary to peptic ulcer disease. The patient is pending blood transfu katy. Monitor H and hematocrit levels closely. 3. Mineral bone disorder. Monitor calcium and phosphorus levels. 4. Acute heart failure, possibly systolic, questionable diastolic. Recommendation is to check a 2D echo to evaluate ejection. Check serial troponins to rule out acute coronary syndrome. We will simba tor closely on current diuretic regimen. 5. Dyslipidemia. Continue statin therapy. 6. Diabetes. Continue current insulin regimen. Thank you, Dr. Navarro, for this interesting consult. It will be a [facility] Dictated By: LANDON LEVI DO NR/ANGEL Conf#: [id number] DID#: [id number] CC: KARYN NAVARRO;*EndCC*
[2018-07-17] MEDS: PANTOPRAZOLE (EC) 40 MG TAB PO SCH (18:54)
[2018-07-17] MEDS: FUROSEMIDE 40 MG INJ IV SCH (18:54)
[2018-07-17 19:30] VITALS: BP 137/61; PULSE 76; RESP 20; Ht 157.5 cm; Wt 102.5 kg
--- NOTE | 2018-07-17 19:58 | CONS ---
Assessment/Plan Assessment/Plan Hospital Course (Demo Recall) 82 yo with recurrent gi bleeding with severe anemia, also has renal insufficiency, severe aortic stenosis, and atrial fibrillation. Impression: Preoperative evaluation prior to possible endoscopy Severe aortic stenosis, asymptomatic likely due to sedentary lifestyle Chronic afib, rate controlled, not on anticoagulation due to recurrent gi bleeding chronc kidney disease Recommendations: She may proceed with endoscopy, which is a low risk procedure. Her severe aortic stenosis will make her higher risk of cardiovascular complications, but if necessary to limit life threatening GI bleeding, then reasonable to proceed. Not a candidate for TAVR at this point with active bleeding. IF bleeding can be stabilized, could consider TAVR. Clearly no anticoagulation due to GI bleeding Dr. Ketan Trevino is patient's usual computer forwarding system markup clerk, and I will reach out to him tomorrow if he would like to follow her in the hospital. Consultation Date/Type/Reason Admit Date/Time Date of Consultation: Jul 17, 2018 Type of Consult Cardiology Reason for Consultation aortic stenosis, preoperative evaluation Date/Time of Note DATE: 07/17/18 TIME: 19:45 Hx of Present Illness 82 yo with multiple medical problems presents due to a low hemoglobin. She had an endoscopy two days ago, and has had multiple recurrent gi bleeds due to a gastric ulcer. At present she is comfortable in bed. She states her computer forwarding system markup clerk is Dr. Ketan Trevino, last saw him 5-6 months ago. Daughter and granddaughter are at bedside, are not the best historians, know that Dr. Trevino told her that she has a heart problem and cannot have surgery, reportedly because of her age. Patient is sedentary, minimally ambulatory in the home. With this minimal amount of ambulation, she has no significant dyspnea or chest pain. She has dyspnea only when she has a low hemoglobin, family states. Constitutional: no complaints Eyes: no complaints ENT: no complaints Respiratory: no complaints Cardiovascular: no complaints; No chest pain Gastrointestinal: no complaints; No pain Genitourinary: no complaints Musculoskeletal: no complaints Skin: no complaints Neurologic: no complaints Endocrine: no complaints Lymphatic: no complaints Psychological: no complaints Immunologic: no complaints Past Medical History Medical History: GI bleed (gastric ulcer), other (atrial fib, aortic stenosis) Home Meds Reported Medications Zolpidem Tartrate* (Zolpidem Tartrate*) 10 Mg Tablet, 10 MG PO QHS PRN for INSOMNIA, #30 TAB 07/17/18 Insulin Lispro (Humalog Kwikpen U-100) 100 Unit/1 Ml Insuln.pen, 8 UNIT SQ BID WITH MEALS, EA 07/17/18 Insulin Glargine* (Lantus*) 100 Unit/Ml Soln, 44 UNIT SC QHS, #1 VIAL 07/17/18 Furosemide* (Furosemide*) 80 Mg Tablet, 80 MG PO DAILY, #30 TAB 07/17/18 Metolazone* (Metolazone*) 5 Mg Tablet, 5 MG PO DAILY, TAB 07/17/18 Potassium Chloride* (K-Dur*) 10 Meq Tab.prt.sr, 10 MEQ PO DAILY, TAB 07/17/18 Alprazolam* (Alprazolam*) 0.5 Mg Tablet, 0.5 MG PO QHS PRN for ANXIETY, TAB 07/17/18 Atorvastatin Calcium* (Atorvastatin Calcium*) 20 Mg Tablet, 20 MG PO QHS, #30 TAB 07/17/18 Ferrous Sulfate* (Ferrous Sulfate*) 325 Mg Tabec, 325 MG PO BID, TAB 07/17/18 Sertraline Hcl* (Sertraline Hcl*) 50 Mg Tablet, 50 MG PO DAILY, #30 TAB 07/17/18 Carvedilol* (Carvedilol*) 3.125 Mg Tablet, 3.125 MG PO BID, #60 TAB 07/17/18 Pantoprazole* (Protonix*) 40 Mg Tablet.dr, 40 MG PO DAILY, TAB 07/17/18 Medications Current Medications IV Flush (NS 3 ml) 3 ml PER PROTOCOL IV ; Start 07/17/18 at 15:30 Ondansetron HCl (Zofran Inj) 4 mg Q6H PRN IV NAUSEA/VOMITING; Start 07/17/18 at 15:30 Acetaminophen (Tylenol Tab) 650 mg Q6H PRN PO .PAIN 1-3 OR TEMP; Start 07/17/18 at 15:30 Acetaminophen/ Hydrocodone Bitart ([place] (5/325)) 1 tab Q6H PRN PO .MOD PAIN 4- 6; Start 07/17/18 at 15:30 Morphine Sulfate (morphine) 2 mg Q4H PRN IV .SEVERE PAIN 7-10; Start 07/17/18 at 15:30 Docusate Sodium (Colace) 100 mg Q12H PRN PO .CONSTIPATION; Start 07/17/18 at 15:30 Magnesium Hydroxide (Milk Of Mag) 30 ml DAILY PRN PO .CONSTIPATION; Start 07/17/18 at 15:30 Lorazepam (Ativan) 0.5 mg Q6H PRN IV ANXIETY; Start 07/17/18 at 15:30 Albuterol/ Ipratropium (Duoneb) 3 ml Q4H RESP THERAPY PRN HHN SHORTNESS OF BREATH; Start 07/17/18 at 15:30 Hydralazine HCl (Apresoline) 10 mg Q6H PRN IV ELEVATED BLOOD PRESSURE; Start 07/17/18 at 15:30 Nitroglycerin (Nitroglycerin (Sl Tab) 0.4 Mg) 1 tab Q5M PRN SL ANGINA; Start 07/17/18 at 15:30 Diagnostic Test (Pha) (Accu-Chek) 1 ea 02 XX ; Start 07/18/18 at 02:00 Insulin Aspart (Novolog Insulin Pen) NOVOLOG *MILD* ALGORI... Q4 SC ; Start 07/17/18 at 17:00 Alprazolam (Xanax) 0.5 mg QHS PRN PO ANXIETY; Start 07/17/18 at 15:30 Atorvastatin Calcium (Lipitor) 20 mg QHS PO ; Start 07/17/18 at 21:00 Carvedilol (Coreg) 3.125 mg BID PO ; Start 07/17/18 at 21:00 Ferrous Sulfate (Ferrous Sulfate (Ec)) 325 mg BID PO ; Start 07/17/18 at 21:00 Insulin Glargine (Lantus) 44 units QHS SC ; Start 07/17/18 at 21:00 Metolazone (Zaroxolyn) 5 mg DAILY PO ; Start 07/18/18 at 09:00 Potassium Chloride (Klor-Con 10) 10 meq DAILY PO ; Start 07/18/18 at 09:00 Zolpidem Tartrate (Ambien) 10 mg QHS PRN PO INSOMNIA; Start 07/17/18 at 15:30 Insulin Aspart (Novolog Insulin Pen) 8 unit AC BREAKFAST DINNER SC ; Start 07/17/18 at 17:30 Furosemide (Lasix) 40 mg BID DIURETICS IV Last administered on 07/17/18at 18:54; Admin Dose 40 MG; Start 07/17/18 at 18:00 Miscellaneous Information 1 ea NOTE XX ; Start 07/17/18 at 16:30 Glucose (Glutose) 15 gm Q15M PRN PO DECREASED GLUCOSE; Start 07/17/18 at 16:30 Glucose (Glutose) 22.5 gm Q15M PRN PO DECREASED GLUCOSE; Start 07/17/18 at 16:30 Dextrose (D50w Syringe) 25 ml Q15M PRN IV DECREASED GLUCOSE; Start 07/17/18 at 16:30 Dextrose (D50w Syringe) 50 ml Q15M PRN IV DECREASED GLUCOSE; Start 07/17/18 at 16:30 Glucagon (Glucagen) 1 mg Q15M PRN IM DECREASED GLUCOSE; Start 07/17/18 at 16:30 Glucose (Glutose) 15 gm Q15M PRN BUCCAL DECREASED GLUCOSE; Start 07/17/18 at 16:30 Pantoprazole (Protonix Tab) 40 mg BID@0600,1800 PO Last administered on 07/17/18at 18:54; Admin Dose 40 MG; Start 07/17/18 at 18:00 Allergies: Coded Allergies: No Known Allergy (Unverified , 07/17/18) Past Surgical History Past Surgical Hx: endoscopy Family History Significant Family History: no pertinent family hx Social History Smoking Status: Never smoker Exam/Review of Systems Vital Signs Vitals Vital Signs Date Temp Pulse Resp B/P (MAP) Pulse Ox O2 O2 Flow FiO2 Time Delivery Rate 07/17/18 98.1 75 18 116/56 100 Nasal 18:30 (76) Cannula Exam Constitutional: alert, oriented, other (mrobidly obese) Psych: nl mood/affect Head: normocephalic, atraumatic Eyes: EOMI, nl lids, nl sclera ENMT: nl external ears & nose, nl lips & teeth Neck: supple, other (thick neck, cannot see jugular veins); No bruits Respiratory: clear to auscultation, normal air movement Cardiovascular: irregular rhythm, murmurs/extra sounds (3/6 holosystolic murmur to the neck) Gastrointestinal: soft, nl liver, spleen, non-tender Musculoskeletal: nl extremities to inspection Extremities: edema (Severe lower extremity edema); No normal pulses, No calf tenderness Neurological: nl speech Skin: nl turgor; No rash or lesions Labs Result Diagram: 07/17/18 1345 07/17/18 1345 Results 24hrs Laboratory Tests Test 07/17/18 13:45 07/17/18 17:59 07/17/18 18:29 07/17/18 18:30 White Blood Count 7.2 Red Blood Count 2.78 L Hemoglobin 6.9 *L Hematocrit 23.5 L Mean Corpuscular 84.5 Volume Mean Corpuscular 24.8 L Hemoglobin Mean Corpuscular 29.4 L Hemoglobin Concent Red Cell 14.8 H Distribution Width Platelet Count 336 Mean Platelet Volume 11.4 H Immature 0.400 Granulocytes % Neutrophils % 63.2 Segmented 68 Neutrophils % (Manual) Lymphocytes % 18.8 Lymphocytes % 18 (Manual) Reactive Lymphocytes 2 H % (Manual) Monocytes % 13.8 H Monocytes % (Manual) 11 Eosinophils % 3.1 Eosinophils % 1 (Manual) Basophils % 0.7 Nucleated Red Blood 0.0 Cells % Immature 0.030 Granulocytes # Neutrophils # 4.6 Lymphocytes (Manual) 1.2 Lymphocytes # 1.4 Reactive Lymphocytes 0.1 H # Monocytes # 1.0 H Monocytes # (Manual) 0.7 Eosinophils # 0.2 Basophils # 0.1 Nucleated Red Blood 0.0 Cells # White Cell @See below Morphology Comment Platelet Estimate NORMAL Giant Platelets 8 H Polychromasia 3+ Hypochromasia 3+ Poikilocytosis 1+ Anisocytosis 1+ Microcytosis 1+ Red Cell Morphology @See below Comment Prothrombin Time 14.1 14.3 Prothrombin Time 1.1 1.1 Ratio INR International 1.08 1.10 Normalized Ratio Activated 30.1 28.9 Partial Thromboplast Time Sodium Level 139 Potassium Level 3.6 Chloride Level 93 L Carbon Dioxide Level 35 H Anion Gap 11 Blood Urea Nitrogen 80 H Creatinine 2.04 H Est Glomerular Filtrat Rate mL/min Glucose Level 177 Calcium Level 8.8 Troponin I < 0.012 < 0.012 B-Type Natriuretic 6120 H Peptide Free Thyroxine 2.07 H Bedside Glucose 190 Creatine Kinase < 20 L Creatine Kinase Index Creatinine Kinase MB 0.46 (Mass) Imaging Imaging Ekg shows afib at 81 bpm, low voltage QRS, nonspecific T wave changes Echo shows normal LV function, severe aortic stenosis Medications Medications Current Medications IV Flush (NS 3 ml) 3 ml PER PROTOCOL IV ; Start 07/17/18 at 15:30 Ondansetron HCl (Zofran Inj) 4 mg Q6H PRN IV NAUSEA/VOMITING; Start 07/17/18 at 15:30 Acetaminophen (Tylenol Tab) 650 mg Q6H PRN PO .PAIN 1-3 OR TEMP; Start 07/17/18 at 15:30 Acetaminophen/ Hydrocodone Bitart ([place] (5/325)) 1 tab Q6H PRN PO .MOD PAIN 4- 6; Start 07/17/18 at 15:30 Morphine Sulfate (morphine) 2 mg Q4H PRN IV .SEVERE PAIN 7-10; Start 07/17/18 at 15:30 Docusate Sodium (Colace) 100 mg Q12H PRN PO .CONSTIPATION; Start 07/17/18 at 15:30 Magnesium Hydroxide (Milk Of Mag) 30 ml DAILY PRN PO .CONSTIPATION; Start 07/17/18 at 15:30 Lorazepam (Ativan) 0.5 mg Q6H PRN IV ANXIETY; Start 07/17/18 at 15:30 Albuterol/ Ipratropium (Duoneb) 3 ml Q4H RESP THERAPY PRN HHN SHORTNESS OF BREATH; Start 07/17/18 at 15:30 Hydralazine HCl (Apresoline) 10 mg Q6H PRN IV ELEVATED BLOOD PRESSURE; Start 07/17/18 at 15:30 Nitroglycerin (Nitroglycerin (Sl Tab) 0.4 Mg) 1 tab Q5M PRN SL ANGINA; Start 07/17/18 at 15:30 Diagnostic Test (Pha) (Accu-Chek) 1 ea 02 XX ; Start 07/18/18 at 02:00 Insulin Aspart (Novolog Insulin Pen) NOVOLOG *MILD* ALGORI... Q4 SC ; Start 07/17/18 at 17:00 Alprazolam (Xanax) 0.5 mg QHS PRN PO ANXIETY; Start 07/17/18 at 15:30 Atorvastatin Calcium (Lipitor) 20 mg QHS PO ; Start 07/17/18 at 21:00 Carvedilol (Coreg) 3.125 mg BID PO ; Start 07/17/18 at 21:00 Ferrous Sulfate (Ferrous Sulfate (Ec)) 325 mg BID PO ; Start 07/17/18 at 21:00 Insulin Glargine (Lantus) 44 units QHS SC ; Start 07/17/18 at 21:00 Metolazone (Zaroxolyn) 5 mg DAILY PO ; Start 07/18/18 at 09:00 Potassium Chloride (Klor-Con 10) 10 meq DAILY PO ; Start 07/18/18 at 09:00 Zolpidem Tartrate (Ambien) 10 mg QHS PRN PO INSOMNIA; Start 07/17/18 at 15:30 Insulin Aspart (Novolog Insulin Pen) 8 unit AC BREAKFAST DINNER SC ; Start 07/17/18 at 17:30 Furosemide (Lasix) 40 mg BID DIURETICS IV Last administered on 07/17/18at 18:54; Admin Dose 40 MG; Start 07/17/18 at 18:00 Miscellaneous Information 1 ea NOTE XX ; Start 07/17/18 at 16:30 Glucose (Glutose) 15 gm Q15M PRN PO DECREASED GLUCOSE; Start 07/17/18 at 16:30 Glucose (Glutose) 22.5 gm Q15M PRN PO DECREASED GLUCOSE; Start 07/17/18 at 16:30 Dextrose (D50w Syringe) 25 ml Q15M PRN IV DECREASED GLUCOSE; Start 07/17/18 at 16:30 Dextrose (D50w Syringe) 50 ml Q15M PRN IV DECREASED GLUCOSE; Start 07/17/18 at 16:30 Glucagon (Glucagen) 1 mg Q15M PRN IM DECREASED GLUCOSE; Start 07/17/18 at 16:30 Glucose (Glutose) 15 gm Q15M PRN BUCCAL DECREASED GLUCOSE; Start 07/17/18 at 16:30 Pantoprazole (Protonix Tab) 40 mg BID@0600,1800 PO Last administered on 07/17/18at 18:54; Admin Dose 40 MG; Start 07/17/18 at 18:00 DONNA WALDEN Jul 17, 2018 19:58
[2018-07-17 20:00] VITALS: PULSE 78
[2018-07-17] MEDS ORDERED: HEPARIN 5,000 UNIT/1 ML VIAL SC SCH (21:00)
[2018-07-17] MEDS ORDERED: ATORVASTATIN 20 MG TAB PO SCH (21:00)
[2018-07-17] MEDS ORDERED: INSULIN GLARGINE [LANTus] (100 UNITS/ML) SYG SC SCH (21:00)
[2018-07-17] MEDS: FERROUS SULFATE (EC) 325 MG TAB PO SCH (21:19)
[2018-07-18] VITALS (7 sets, daily range): BP systolic 110–134; BP diastolic 53–63; PULSE 77–89; RESP 18–20
[2018-07-18] MEDS ORDERED: ACCU-CHEK XX SCH (02:00)
[2018-07-18] MEDS: PANTOPRAZOLE (EC) 40 MG TAB PO SCH (05:24)
[2018-07-18] MEDS: FUROSEMIDE 40 MG INJ IV SCH (05:24)
[2018-07-18] MEDS: INSULIN ASPART [NOVOLOG] 3 ML PEN SC SCH ×2 (05:37→12:00)
[2018-07-18] MEDS ORDERED: PANTOPRAZOLE 40 MG INJ IV SCH (06:00)
[2018-07-18] MEDS ORDERED: PANTOPRAZOLE (EC) 40 MG TAB PO SCH (06:00)
[2018-07-18] MEDS ORDERED: POTASSIUM CHLORIDE (SR) 20 MEQ TAB PO STA ×3 (08:56→12:03)
[2018-07-18] MEDS ORDERED: METOLAZONE 5 MG TAB PO SCH (09:00)
[2018-07-18] MEDS ORDERED: POTASSIUM CHLORIDE 100 ML IVPB ONE (09:00)
[2018-07-18] MEDS: FERROUS SULFATE (EC) 325 MG TAB PO SCH ×2 (09:00→12:26)
[2018-07-18] MEDS: POTASSIUM CHLORIDE (SR) 10 MEQ TAB PO SCH ×2 (09:00→12:29)
--- NOTE | 2018-07-18 09:03 | CONS ---
Assessment/Plan Assessment/Plan Hospital Course (Demo Recall) 82 yo with recurrent gi bleeding with severe anemia, renal insufficiency, severe aortic stenosis, and atrial fibrillation. Impression: Severe aortic stenosis, asymptomatic likely due to sedentary lifestyle Chronic afib, rate controlled, not on anticoagulation due to recurrent gi bleeding chronc kidney disease GI bleed with gastric ulcer Hypokalemia Recommendations: She may proceed with endoscopy, which is a low risk procedure. Her severe aortic stenosis will make her higher risk of cardiovascular complications, but if necessary to limit life threatening GI bleeding, then reasonable to proceed. Replete potassium IV, given possible procedure today if patient agrees Not a candidate for TAVR at this point with active bleeding. IF bleeding can be stabilized, could consider TAVR. No anticoagulation due to GI bleeding Continue carvedilol, atorvastatin Case discussed with Dr. Ketan Trevino, her outpatient drapery maker, who has asked me to follow patient in the hospital. Consultation Date/Type/Reason Admit Date/Time Jul 17, 2018 at 15:24 Initial Consult Date 07/17/18 Type of Consult Cardiology Date/Time of Note DATE: 07/18/18 TIME: 09:00 24 HR Interval Summary Free Text/Dictation Patient refusing EGD/colonoscopy. No chest pain, no dyspnea. Transfused yesterday. Exam/Review of Systems Vital Signs Vitals Vital Signs Date Temp Pulse Resp B/P (MAP) Pulse Ox O2 O2 Flow FiO2 Time Delivery Rate 07/18/18 83 08:13 07/18/18 97.7 20 110/58 97 Nasal 07:39 (75) Cannula 07/18/18 2.0 04:33 Intake and Output 07/17/18 07/17/18 07/18/18 1515:00 23:00 07:00 IntakeIntake Total 920 ml BalanceBalance 920 ml Exam Constitutional: alert, well developed Psych: nl mood/affect Head: normocephalic, atraumatic Eyes: EOMI, nl lids, nl sclera ENMT: nl external ears & nose, nl lips & teeth Neck: supple; No bruits Respiratory: clear to auscultation, normal air movement Cardiovascular: regular rate and rhythm, murmurs/extra sounds (3/6 systolic murmur) Gastrointestinal: soft, nl liver, spleen, non-tender Musculoskeletal: nl extremities to inspection Extremities: normal pulses Neurological: nl mental status, nl speech Skin: nl turgor; No rash or lesions Lymph: nl lymph nodes Labs Result Diagram: 07/18/18 0555 07/18/18 0554 Results 24hrs Laboratory Tests Test 07/17/18 13:45 07/17/18 17:59 07/17/18 18:29 07/17/18 18:30 White Blood 7.2 Count Red Blood Count 2.78 L Hemoglobin 6.9 *L Hematocrit 23.5 L Mean Corpuscular 84.5 Volume Mean Corpuscular 24.8 L Hemoglobin Mean Corpuscular 29.4 L Hemoglobin Mary Carmen nt Red Cell 14.8 H Distribution Width Platelet Count 336 Mean Platelet 11.4 H Volume Immature 0.400 Granulocytes % Neutrophils % 63.2 Segmented 68 Neutrophils % (Manual) Lymphocytes % 18.8 Lymphocytes % 18 (Manual) Reactive 2 H Lymphocytes % (Manual) Monocytes % 13.8 H Monocytes % 11 (Manual) Eosinophils % 3.1 Eosinophils % 1 (Manual) Basophils % 0.7 Nucleated Red 0.0 Blood Cells % Immature 0.030 Granulocytes # Neutrophils # 4.6 Lymphocytes 1.2 (Manual) Lymphocytes # 1.4 Reactive 0.1 H Lymphocytes # Monocytes # 1.0 H Monocytes # 0.7 (Manual) Eosinophils # 0.2 Basophils # 0.1 Nucleated Red 0.0 Blood Cells # White Cell @See below Morphology Comment Platelet NORMAL Estimate Giant Platelets 8 H Polychromasia 3+ Hypochromasia 3+ Poikilocytosis 1+ Anisocytosis 1+ Microcytosis 1+ Red Cell @See below Morphology Comment Prothrombin Time 14.1 14.3 Prothrombin Time 1.1 1.1 Ratio INR 1.08 1.10 International Normalized Ratio Activated 30.1 28.9 Partial Thrombop last Time Path Consult BARBARA BUSTOS Signing Patholog ist Sodium Level 139 Potassium Level 3.6 Chloride Level 93 L Carbon Dioxide 35 H Level Anion Gap 11 Blood Urea 80 H Nitrogen Creatinine 2.04 H Est Glomerular Filtrat Rate mL/min Glucose Level 177 Calcium Level 8.8 Troponin I < 0.012 < 0.012 B-Type 6120 H Natriuretic Peptide Free Thyroxine 2.07 H Bedside Glucose 190 Creatine Kinase < 20 L Creatine Kinase Index Creatinine 0.46 Kinase MB (Mass) Test 07/17/18 21:00 07/17/18 21:18 07/18/18 00:44 07/18/18 05:26 Urine Color STRAW Urine Clarity CLEAR Urine pH 5.0 Urine Specific 1.008 Jeff Urine Ketones NEGATIVE Urine Nitrite NEGATIVE Urine Bilirubin NEGATIVE Urine NEGATIVE Urobilinogen Urine Leukocyte NEGATIVE Esterase Urine Hemoglobin NEGATIVE Urine Random 26.31 Creatinine Urine Random 74 Sodium Urine Glucose NEGATIVE Urine Total 14.0 H Protein Bedside Glucose 187 169 Creatine Kinase < 20 L Creatine Kinase Index Creatinine 0.44 Kinase MB (Mass) Troponin I < 0.012 Test 07/18/18 05:54 07/18/18 05:55 07/18/18 07:50 Sodium Level 140 Potassium Level 3.2 L Chloride Level 93 L Carbon Dioxide 38 H Level Anion Gap 9 Blood Urea 76 H Nitrogen Creatinine 1.79 H Est Glomerular Filtrat Rate mL/min Glucose Level 140 Hemoglobin A1c 8.9 H Calcium Level 8.7 Phosphorus Level 3.9 Magnesium Level 2.0 Triglycerides 127 Level Cholesterol 94 L Level LDL Cholesterol, 43 Calculated HDL Cholesterol 26 L Cholesterol/HDL 3.6 Ratio Thyroid 0.634 Stimulating Hormone (TSH) White Blood 7.2 Count Red Blood Count 3.30 L Hemoglobin 8.5 #L Hematocrit 27.0 L Mean Corpuscular 81.8 L Volume Mean Corpuscular 25.8 L Hemoglobin Mean Corpuscular 31.5 L Hemoglobin Mary Carmen nt Red Cell 14.6 H Distribution Width Platelet Count 312 Mean Platelet 10.8 H Volume Immature 0.600 H Granulocytes % Neutrophils % 66.6 Lymphocytes % 16.3 Monocytes % 13.4 H Eosinophils % 2.4 Basophils % 0.7 Nucleated Red 0.0 Blood Cells % Immature 0.040 H Granulocytes # Neutrophils # 4.8 Lymphocytes # 1.2 Monocytes # 1.0 H Eosinophils # 0.2 Basophils # 0.1 Nucleated Red 0.0 Blood Cells # Lab Scanned BLOOD TRANSFUSI Report ON Medications Medications Current Medications IV Flush (NS 3 ml) 3 ml PER PROTOCOL IV ; Start 07/17/18 at 15:30 Ondansetron HCl (Zofran Inj) 4 mg Q6H PRN IV NAUSEA/VOMITING; Start 07/17/18 at 15:30 Acetaminophen (Tylenol Tab) 650 mg Q6H PRN PO .PAIN 1-3 OR TEMP; Start 07/17/18 at 15:30 Acetaminophen/ Hydrocodone Bitart ([place] (5/325)) 1 tab Q6H PRN PO .MOD PAIN 4- 6; Start 07/17/18 at 15:30 Morphine Sulfate (morphine) 2 mg Q4H PRN IV .SEVERE PAIN 7-10; Start 07/17/18 at 15:30 Docusate Sodium (Colace) 100 mg Q12H PRN PO .CONSTIPATION; Start 07/17/18 at 15:30 Magnesium Hydroxide (Milk Of Mag) 30 ml DAILY PRN PO .CONSTIPATION; Start 07/17/18 at 15:30 Lorazepam (Ativan) 0.5 mg Q6H PRN IV ANXIETY; Start 07/17/18 at 15:30 Albuterol/ Ipratropium (Duoneb) 3 ml Q4H RESP THERAPY PRN HHN SHORTNESS OF BREATH; Start 07/17/18 at 15:30 Hydralazine HCl (Apresoline) 10 mg Q6H PRN IV ELEVATED BLOOD PRESSURE; Start 07/17/18 at 15:30 Nitroglycerin (Nitroglycerin (Sl Tab) 0.4 Mg) 1 tab Q5M PRN SL ANGINA; Start 07/17/18 at 15:30 Alprazolam (Xanax) 0.5 mg QHS PRN PO ANXIETY Last administered on 07/17/18at 23:17; Admin Dose 0.5 MG; Start 07/17/18 at 15:30 Atorvastatin Calcium (Lipitor) 20 mg QHS PO Last administered on 07/17/18at 21:19; Admin Dose 20 MG; Start 07/17/18 at 21:00 Carvedilol (Coreg) 3.125 mg BID PO Last administered on 07/17/18 21:19; Admin Dose 3.125 MG; Start 07/17/18 at 21:00 Ferrous Sulfate (Ferrous Sulfate (Ec)) 325 mg BID PO Last administered on 07/17/18at 21:19; Admin Dose 325 MG; Start 07/17/18 at 21:00 Insulin Glargine (Lantus) 44 units QHS SC Last administered on 07/17/18at 21:30; Admin Dose 44 UNITS; Start 07/17/18 at 21:00 Metolazone (Zaroxolyn) 5 mg DAILY PO ; Start 07/18/18 at 09:00 Potassium Chloride (Klor-Con 10) 10 meq DAILY PO ; Start 07/18/18 at 09:00 Zolpidem Tartrate (Ambien) 10 mg QHS PRN PO INSOMNIA Last administered on 07/18/18at 00:30; Admin Dose 10 MG; Start 07/17/18 at 15:30 Furosemide (Lasix) 40 mg BID DIURETICS IV Last administered on 07/18/18at 05:24; Admin Dose 40 MG; Start 07/17/18 at 18:00 Miscellaneous Information 1 ea NOTE XX ; Start 07/17/18 at 16:30 Glucose (Glutose) 15 gm Q15M PRN PO DECREASED GLUCOSE; Start 07/17/18 at 16:30 Glucose (Glutose) 22.5 gm Q15M PRN PO DECREASED GLUCOSE; Start 07/17/18 at 16:30 Dextrose (D50w Syringe) 25 ml Q15M PRN IV DECREASED GLUCOSE; Start 07/17/18 at 16:30 Dextrose (D50w Syringe) 50 ml Q15M PRN IV DECREASED GLUCOSE; Start 07/17/18 at 16:30 Glucagon (Glucagen) 1 mg Q15M PRN IM DECREASED GLUCOSE; Start 07/17/18 at 16:30 Glucose (Glutose) 15 gm Q15M PRN BUCCAL DECREASED GLUCOSE; Start 07/17/18 at 16:30 Pantoprazole (Protonix Tab) 40 mg BID@0600,1800 PO Last administered on 07/18/18at 05:24; Admin Dose 40 MG; Start 07/17/18 at 18:00 Insulin Aspart (Novolog Insulin Pen) NOVOLOG *MILD* ALGORI... Q6 SC Last administered on 07/18/18at 05:37; Admin Dose 1 UNIT; Start 07/18/18 at 06:00 DONNA WALDEN Jul 18, 2018 09:03
--- NOTE | 2018-07-18 09:23 | PN ---
DATE: 07/18/2018 SUBJECTIVE: The patient is stable. No events overnight. OBJECTIVE: VITAL SIGNS: Blood pressure is 110/58, respirations 20, pulse 89, temperature 97.7. HEENT: Head is normocephalic. NECK: Supple. HEART: Regular rate. LUNGS: Show diminished breath sounds at the base. ABDOMEN: Soft, nontender to palpation without rebound or guarding. EXTREMITIES: Negative for clubbing, cyanosis. Positive edema. DERMATOLOGIC: No rashes. MUSCULOSKELETAL: No joint effusion. NEUROLOGIC: No change in exam. MEDICATIONS: Reviewed. LABORATORY DATA: Shows a sodium 140, potassium 3.2, chloride 93, BUN 76, creatinine 1.79. White cou nt 7.2, hemoglobin 8.5, platelet count 312. Urinalysis was reviewed. IMAGING STUDY: Renal ultrasound was reviewed, showed left renal parenchymal disease, bilateral renal cortical atrophy. ASSESSMENT AND PLAN: 1. Nonoliguric acute kidney injury on top of chronic kidney disease with unknown baseline creatinine . Etiology may be secondary to hemodynamics, questionable cardiorenal syndrome. The patient's urina lysis was reviewed, no active sediment. Renal ultrasound shows increased echogenicity consistent wit h chronic kidney disease. The patient's renal function has been improving after blood transfusion. At this point, continue current treatment plan, supportive care, renally dose all medicines, monitor closely on diuretic therapy. 2. Anemia, possibly due to peptic ulcer disease. The patient is status post blood transfusion, simba tor hemoglobin and hematocrit levels. 3. Mineral bone disorder. Continue to monitor calcium and phosphorus levels. 4. Hypokalemia, replete with potassium chloride. 5. Acute heart failure. The patient is currently on diuretic therapy, monitor electrolytes and miah l function closely. Follow up 2D echo. 6. Dyslipidemia. Continue statin therapy. 7. Diabetes. Continue current insulin regimen. 8. Alkalosis, unclear if this is compensatory or metabolic. We will check an ABG. Dictated By: LANDON LEVI DO NR/ANGEL Conf#: [id number] DID#: [id number] CC: KARYN NAVARRO; LANDON LEVI DO;*EndCC*
--- NOTE | 2018-07-18 12:00 | PN ---
Date/Time of Note Date/Time of Note DATE: 07/18/18 TIME: 11:51 Assessment/Plan VTE Prophylaxis Risk score (from Ns)>0 risk: 9 [place] [facility] [place] Pharmacological prophylaxis: NA/contraindicated Pharm contraindication: bleeding Lines/Catheters IV Catheter Type (from [facility]): [place] Urinary Cath still in place: No Assessment/Plan Hospital Course S: Patient received PRBC transfusion yesterday. Seen by renal, GI, cardiology team yesterday. Presently refusing EGD. Patient is n.p.o. O: Vs - see below PHYSICAL EXAMINATION: GENERAL: lying in bed, family members at the bedside, in no acute distress. HEENT: Pupils are equal, round, reactive to light. Extraocular muscles are intact. NECK: Supple. No thyromegaly. LUNGS: Clear to auscultation bilaterally. CARDIOVASCULAR: S1, S2 heard. No rubs or gallops. ABDOMEN: Soft, nontender, nondistended, normal bowel sounds, no rebound or guarding. MUSCULOSKELETAL: A 1 to 2+ pitting edema bilateral lower extremities to the mid calves. NEUROLOGIC: No focal deficits. 2D echo: Conclusions: Technically difficult study. EF 55% Mild concentric left ventricular hypertrophy with normal systolic function. Mild biatrial enlargement. Severe calcific aortic stenosis, peak and mean gradients of 49 and 31 mmHg, calculated valve area 0.71 cm2. Mild tricuspid regurgitation and mild pulmonary hypertension. Dilated IVC that does not collapse consistent with elevated right atrial pressures. ASSESSMENT AND PLAN: 82-year-old female coming in with anemia, likely secondary to gastrointestinal bleed, also signs of acute tubular injury, acute congestive heart failure exacerbation. 1. Anemia: Hemoglobin improved after PRBC transfusion yesterday. Anemia likely secondary to gastrointestinal bleed given the patient's prior history of gastric ulcer and 6 EGDs in the last year for treatment of this. -Monitor CBC, follow-up recognitions from GI consult as well-patient presently refusing EGD. -Continue PT, OT and speech therapy consult. -Follow-up results of stool occult test -Continue to hold all anticoagulants. 2. Acute kidney injury-creatinine slightly improved today, on IV Lasix again, the patient denies any prior history of kidney issues. At home she is on 80 mg of Lasix p.o. daily. -For now continue Lasix IV b.i.d, Monitor ins and outs. -Follow-up renal recommendations, Monitor BUN and creatinine levels. 3. Congestive heart failure-Echo results noted, patient does have severe aortic stenosis, EF 55%, on admission the BNP 6000. The patient does see a neurodiagnostic technologist in [place] for treatment of congestive heart failure in the past. No prior history of any stroke or heart attack per patient. Patient also has history of chronic A. fib -Continue to keep the bed head of the bed greater than 30 degrees. Monitor ins and outs and daily weights. - Keep her on low-dose beta elliott and IV Lasix, morphine p.r.n., oxygen as needed. Nitroglycerin p.r.n. -Follow-up recommendations from cardiology consult. -Monitor rate controlled A. fib for now (obviously not on anticoagulants presently given GI bleeding issues) 4. History of high cholesterol. - Follow up lipid panel. -Continue statin. 5. History of diabetes -A1c = 8.9. - Continue home insulins, sliding scale insulin. 6. Deep venous thrombosis prophylaxis. Hold all anticoagulants. Continue SCDs. Result Diagram: 07/18/18 0555 07/18/18 0554 Results 24hrs Laboratory Tests Test 07/17/18 13:45 07/17/18 17:59 07/17/18 18:29 07/17/18 18:30 White Blood 7.2 Count Red Blood Count 2.78 L Hemoglobin 6.9 *L Hematocrit 23.5 L Mean 84.5 Corpuscular Volume Mean 24.8 L Corpuscular Hemoglobin Mean 29.4 L Corpuscular Hemoglobin Conc ent Red Cell 14.8 H Distribution Width Platelet Count 336 Mean Platelet 11.4 H Volume Immature 0.400 Granulocytes % Neutrophils % 63.2 Segmented 68 Neutrophils % (Manual) Lymphocytes % 18.8 Lymphocytes % 18 (Manual) Reactive 2 H Lymphocytes % (Manual) Monocytes % 13.8 H Monocytes % 11 (Manual) Eosinophils % 3.1 Eosinophils % 1 (Manual) Basophils % 0.7 Nucleated Red 0.0 Blood Cells % Immature 0.030 Granulocytes # Neutrophils # 4.6 Lymphocytes 1.2 (Manual) Lymphocytes # 1.4 Reactive 0.1 H Lymphocytes # Monocytes # 1.0 H Monocytes # 0.7 (Manual) Eosinophils # 0.2 Basophils # 0.1 Nucleated Red 0.0 Blood Cells # White Cell @See below Morphology Comment Platelet NORMAL Estimate Giant Platelets 8 H Polychromasia 3+ Hypochromasia 3+ Poikilocytosis 1+ Anisocytosis 1+ Microcytosis 1+ Red Cell @See below Morphology Comment Prothrombin 14.1 14.3 Time Prothrombin 1.1 1.1 Time Ratio INR 1.08 1.10 International Normalized Rati o Activated 30.1 28.9 Partial Thrombo plast Time Path Consult Laura MOLINA Pathedith bender Sodium Level 139 Potassium Level 3.6 Chloride Level 93 L Carbon Dioxide 35 H Level Anion Gap 11 Blood Urea 80 H Nitrogen Creatinine 2.04 H Est Glomerular Filtrat Rate mL/min Glucose Level 177 Calcium Level 8.8 Troponin I < 0.012 < 0.012 B-Type 6120 H Natriuretic Peptide Free Thyroxine 2.07 H Bedside Glucose 190 Creatine Kinase < 20 L Creatine Kinase Index Creatinine 0.46 Kinase MB (Mass) Test 07/17/18 21:00 07/17/18 21:18 07/18/18 00:44 07/18/18 05:26 Urine Color STRAW Urine Clarity CLEAR Urine pH 5.0 Urine Specific 1.008 [place] Urine Ketones NEGATIVE Urine Nitrite NEGATIVE Urine Bilirubin NEGATIVE Urine NEGATIVE Urobilinogen Urine Leukocyte NEGATIVE Esterase Urine NEGATIVE Hemoglobin Urine Random 26.31 Creatinine Urine Random 74 Sodium Urine Glucose NEGATIVE Urine Total 14.0 H Protein Bedside Glucose 187 169 Creatine Kinase < 20 L Creatine Kinase Index Creatinine 0.44 Kinase MB (Mass) Troponin I < 0.012 Test 07/18/18 05:54 07/18/18 05:55 07/18/18 07:50 07/18/18 08:56 Sodium Level 140 Potassium Level 3.2 L Chloride Level 93 L Carbon Dioxide 38 H Level Anion Gap 9 Blood Urea 76 H Nitrogen Creatinine 1.79 H Est Glomerular Filtrat Rate mL/min Glucose Level 140 Hemoglobin A1c 8.9 H Calcium Level 8.7 Phosphorus 3.9 Level Magnesium Level 2.0 Triglycerides 127 Level Cholesterol 94 L Level LDL 43 Cholesterol, Calculated HDL Cholesterol 26 L Cholesterol/HDL 3.6 Ratio Thyroid 0.634 Stimulating Hormone (TSH) White Blood 7.2 Count Red Blood Count 3.30 L Hemoglobin 8.5 #L Hematocrit 27.0 L Mean 81.8 L Corpuscular Volume Mean 25.8 L Corpuscular Hemoglobin Mean 31.5 L Corpuscular Hemoglobin Conc ent Red Cell 14.6 H Distribution Width Platelet Count 312 Mean Platelet 10.8 H Volume Immature 0.600 H Granulocytes % Neutrophils % 66.6 Lymphocytes % 16.3 Monocytes % 13.4 H Eosinophils % 2.4 Basophils % 0.7 Nucleated Red 0.0 Blood Cells % Immature 0.040 H Granulocytes # Neutrophils # 4.8 Lymphocytes # 1.2 Monocytes # 1.0 H Eosinophils # 0.2 Basophils # 0.1 Nucleated Red 0.0 Blood Cells # Lab Scanned BLOOD TRANSFUSI Report ON Blood Gas Blood Specimen arterial Source Arterial Blood 07/18/2018 9:30 Date Drawn :54 AM Arterial Blood 7.451 H pH (Temp corrected ) Arterial Blood 50.2 H pCO2 (Temp correct) Arterial Blood 53.3 *L pO2 (Temp corrected ) Arterial Blood 34.2 H HCO3 Arterial Blood 9.0 H Base Excess Arterial Blood 87.8 L Oxygen Saturati on Alexis Test ACCEPTAB Arterial Blood Right Radial Gas Puncture Site Arterial 0.6 Blood Carboxyhe moglobin Arterial Blood 0.2 Methemoglobin Blood Gas A-a 36.3 H O2 Differential Oxyhemoglobin 87.1 L Percent Blood Gas 37.0 Temperature Blood Gas ROOM AIR Modality FiO2 21.0 Blood Gas BEATRIZ TOWNSEND Critical Value Read Back Blood Gas TM Notified Whom Blood Gas 07/18/2018 9:39 Notified Time :25 AM Exam/Review of Systems Exam Vitals Vital Signs Date Temp Pulse Resp B/P (MAP) Pulse Ox O2 O2 Flow FiO2 Time Delivery Rate 07/18/18 Nasal 2.0 09:00 Cannula 07/18/18 83 08:13 07/18/18 97.7 20 110/58 97 07:39 (75) Intake and Output 07/17/18 07/17/18 07/18/18 1414:59 22:59 06:59 IntakeIntake Total 920 ml BalanceBalance 920 ml Results Results 24hrs Laboratory Tests Test 07/17/18 13:45 07/17/18 17:59 07/17/18 18:29 07/17/18 18:30 White Blood 7.2 Count Red Blood Count 2.78 L Hemoglobin 6.9 *L Hematocrit 23.5 L Mean 84.5 Corpuscular Volume Mean 24.8 L Corpuscular Hemoglobin Mean 29.4 L Corpuscular Hemoglobin Conc ent Red Cell 14.8 H Distribution Width Platelet Count 336 Mean Platelet 11.4 H Volume Immature 0.400 Granulocytes % Neutrophils % 63.2 Segmented 68 Neutrophils % (Manual) Lymphocytes % 18.8 Lymphocytes % 18 (Manual) Reactive 2 H Lymphocytes % (Manual) Monocytes % 13.8 H Monocytes % 11 (Manual) Eosinophils % 3.1 Eosinophils % 1 (Manual) Basophils % 0.7 Nucleated Red 0.0 Blood Cells % Immature 0.030 Granulocytes # Neutrophils # 4.6 Lymphocytes 1.2 (Manual) Lymphocytes # 1.4 Reactive 0.1 H Lymphocytes # Monocytes # 1.0 H Monocytes # 0.7 (Manual) Eosinophils # 0.2 Basophils # 0.1 Nucleated Red 0.0 Blood Cells # White Cell @See below Morphology Comment Platelet NORMAL Estimate Giant Platelets 8 H Polychromasia 3+ Hypochromasia 3+ Poikilocytosis 1+ Anisocytosis 1+ Microcytosis 1+ Red Cell @See below Morphology Comment Prothrombin 14.1 14.3 Time Prothrombin 1.1 1.1 Time Ratio INR 1.08 1.10 International Normalized Rati o Activated 30.1 28.9 Partial Thrombo plast Time Path Consult Chang MOLINAing Nannette GILL gist Sodium Level 139 Potassium Level 3.6 Chloride Level 93 L Carbon Dioxide 35 H Level Anion Gap 11 Blood Urea 80 H Nitrogen Creatinine 2.04 H Est Glomerular Filtrat Rate mL/min Glucose Level 177 Calcium Level 8.8 Troponin I < 0.012 < 0.012 B-Type 6120 H Natriuretic Peptide Free Thyroxine 2.07 H Bedside Glucose 190 Creatine Kinase < 20 L Creatine Kinase Index Creatinine 0.46 Kinase MB (Mass) Test 07/17/18 21:00 07/17/18 21:18 07/18/18 00:44 07/18/18 05:26 Urine Color STRAW Urine Clarity CLEAR Urine pH 5.0 Urine Specific 1.008 [place] Urine Ketones NEGATIVE Urine Nitrite NEGATIVE Urine Bilirubin NEGATIVE Urine NEGATIVE Urobilinogen Urine Leukocyte NEGATIVE Esterase Urine NEGATIVE Hemoglobin Urine Random 26.31 Creatinine Urine Random 74 Sodium Urine Glucose NEGATIVE Urine Total 14.0 H Protein Bedside Glucose 187 169 Creatine Kinase < 20 L Creatine Kinase Index Creatinine 0.44 Kinase MB (Mass) Troponin I < 0.012 Test 07/18/18 05:54 07/18/18 05:55 07/18/18 07:50 07/18/18 08:56 Sodium Level 140 Potassium Level 3.2 L Chloride Level 93 L Carbon Dioxide 38 H Level Anion Gap 9 Blood Urea 76 H Nitrogen Creatinine 1.79 H Est Glomerular Filtrat Rate mL/min Glucose Level 140 Hemoglobin A1c 8.9 H Calcium Level 8.7 Phosphorus 3.9 Level Magnesium Level 2.0 Triglycerides 127 Level Cholesterol 94 L Level LDL 43 Cholesterol, Calculated HDL Cholesterol 26 L Cholesterol/HDL 3.6 Ratio Thyroid 0.634 Stimulating Hormone (TSH) White Blood 7.2 Count Red Blood Count 3.30 L Hemoglobin 8.5 #L Hematocrit 27.0 L Mean 81.8 L Corpuscular Volume Mean 25.8 L Corpuscular Hemoglobin Mean 31.5 L Corpuscular Hemoglobin Conc ent Red Cell 14.6 H Distribution Width Platelet Count 312 Mean Platelet 10.8 H Volume Immature 0.600 H Granulocytes % Neutrophils % 66.6 Lymphocytes % 16.3 Monocytes % 13.4 H Eosinophils % 2.4 Basophils % 0.7 Nucleated Red 0.0 Blood Cells % Immature 0.040 H Granulocytes # Neutrophils # 4.8 Lymphocytes # 1.2 Monocytes # 1.0 H Eosinophils # 0.2 Basophils # 0.1 Nucleated Red 0.0 Blood Cells # Lab Scanned BLOOD TRANSFUSI Report ON Blood Gas Blood Specimen arterial Source Arterial Blood 07/18/2018 9:30 Date Drawn :54 AM Arterial Blood 7.451 H pH (Temp corrected ) Arterial Blood 50.2 H pCO2 (Temp correct) Arterial Blood 53.3 *L pO2 (Temp corrected ) Arterial Blood 34.2 H HCO3 Arterial Blood 9.0 H Base Excess Arterial Blood 87.8 L Oxygen Saturati on Alexis Test ACCEPTAB Arterial Blood Right Radial Gas Puncture Site Arterial 0.6 Blood Carboxyhe moglobin Arterial Blood 0.2 Methemoglobin Blood Gas A-a 36.3 H O2 Differential Oxyhemoglobin 87.1 L Percent Blood Gas 37.0 Temperature Blood Gas ROOM AIR Modality FiO2 21.0 Blood Gas BEATRIZ TOWNSEND Critical Value Read Back Blood Gas TM Notified Whom Blood Gas 07/18/2018 9:39 Notified Time :25 AM Medications Medication Current Medications IV Flush (NS 3 ml) 3 ml PER PROTOCOL IV ; Start 07/17/18 at 15:30 Ondansetron HCl (Zofran Inj) 4 mg Q6H PRN IV NAUSEA/VOMITING; Start 07/17/18 at 15:30 Acetaminophen (Tylenol Tab) 650 mg Q6H PRN PO .PAIN 1-3 OR TEMP; Start 07/17/18 at 15:30 Acetaminophen/ Hydrocodone Bitart ([place] (5/325)) 1 tab Q6H PRN PO .MOD PAIN 4- 6; Start 07/17/18 at 15:30 Morphine Sulfate (morphine) 2 mg Q4H PRN IV .SEVERE PAIN 7-10; Start 07/17/18 at 15:30 Docusate Sodium (Colace) 100 mg Q12H PRN PO .CONSTIPATION; Start 07/17/18 at 15:30 Magnesium Hydroxide (Milk Of Mag) 30 ml DAILY PRN PO .CONSTIPATION; Start 07/17/18 at 15:30 Lorazepam (Ativan) 0.5 mg Q6H PRN IV ANXIETY; Start 07/17/18 at 15:30 Albuterol/ Ipratropium (Duoneb) 3 ml Q4H RESP THERAPY PRN HHN SHORTNESS OF BREATH; Start 07/17/18 at 15:30 Hydralazine HCl (Apresoline) 10 mg Q6H PRN IV ELEVATED BLOOD PRESSURE; Start 07/17/18 at 15:30 Nitroglycerin (Nitroglycerin (Sl Tab) 0.4 Mg) 1 tab Q5M PRN SL ANGINA; Start 07/17/18 at 15:30 Alprazolam (Xanax) 0.5 mg QHS PRN PO ANXIETY Last administered on 07/17/18at 23:17; Admin Dose 0.5 MG; Start 07/17/18 at 15:30 Atorvastatin Calcium (Lipitor) 20 mg QHS PO Last administered on 07/17/18 21:19; Admin Dose 20 MG; Start 07/17/18 at 21:00 Carvedilol (Coreg) 3.125 mg BID PO Last administered on 07/17/18 21:19; Admin Dose 3.125 MG; Start 07/17/18 at 21:00 Ferrous Sulfate (Ferrous Sulfate (Ec)) 325 mg BID PO Last administered on 07/17/18 21:19; Admin Dose 325 MG; Start 07/17/18 at 21:00 Insulin Glargine (Lantus) 44 units QHS SC Last administered on 07/17/18at 21:30; Admin Dose 44 UNITS; Start 07/17/18 at 21:00 Metolazone (Zaroxolyn) 5 mg DAILY PO ; Start 07/18/18 at 09:00 Potassium Chloride (Klor-Con 10) 10 meq DAILY PO ; Start 07/18/18 at 09:00 Zolpidem Tartrate (Ambien) 10 mg QHS PRN PO INSOMNIA Last administered on 07/18/18at 00:30; Admin Dose 10 MG; Start 07/17/18 at 15:30 Furosemide (Lasix) 40 mg BID DIURETICS IV Last administered on 07/18/18at 05:2 4; Admin Dose 40 MG; Start 07/17/18 at 18:00 Miscellaneous Information 1 ea NOTE XX ; Start 07/17/18 at 16:30 Glucose (Glutose) 15 gm Q15M PRN PO DECREASED GLUCOSE; Start 07/17/18 at 16:30 Glucose (Glutose) 22.5 gm Q15M PRN PO DECREASED GLUCOSE; Start 07/17/18 at 16:30 Dextrose (D50w Syringe) 25 ml Q15M PRN IV DECREASED GLUCOSE; Start 07/17/18 at 16:30 Dextrose (D50w Syringe) 50 ml Q15M PRN IV DECREASED GLUCOSE; Start 07/17/18 at 16:30 Glucagon (Glucagen) 1 mg Q15M PRN IM DECREASED GLUCOSE; Start 07/17/18 at 16:30 Glucose (Glutose) 15 gm Q15M PRN BUCCAL DECREASED GLUCOSE; Start 07/17/18 at 16:30 Pantoprazole (Protonix Tab) 40 mg BID@0600,1800 PO Last administered on 07/18/18at 05:24; Admin Dose 40 MG; Start 07/17/18 at 18:00 Insulin Aspart (Novolog Insulin Pen) NOVOLOG *MILD* ALGORI... Q6 SC Last administered on 07/18/18at 05:37; Admin Dose 1 UNIT; Start 07/18/18 at 06:00 KARYN NAVARRO Jul 18, 2018 12:00
--- NOTE | 2018-07-18 14:03 | PN ---
Date/Time of Note Date/Time of Note DATE: 07/18/18 TIME: 13:56 Assessment/Plan VTE Prophylaxis Risk score (from [facility] [place])>0 risk: 9 SCD applied (from Ns): Yes Pharmacological prophylaxis: other (scds) Lines/Catheters IV [facility]ter Type [facility]from [facility] Saline Lock Urinary Cath still in place: No Assessment/Plan Hospital Course Summary Assessment and Plan: Assessment: Severe Recurrent UGIB from same gastric ulcer - With multiple EGD Renal insufficiency CHF HTN DM Plan: PPI /Carafate [id number] PT/Family refused repeat EGD GI will sign off but will be available upon reconsult as needed Recommend pt to f/u with her GI physician after discharge Patient seen in collaboration with Dr. Snyder Subjective: Course reviewed with nursing staff Patient interviewed and examined All labs, imaging and other results reviewed The patient resting in bed, tolerating diet well, no overt signs of GI bleed Hgb with an appropriate response to blood transfusions. Pt to f/u with her Gi physician after discharge PHYSICAL EXAMINATION: GENERAL: Alert & oriented x 3, in no acute distress SKIN: No lesions EYES: Pupils equal reactive to light NECK: Supple, no masses CHEST: Inspection within normal limits. CARDIOVASCULAR: Heart: Regular rate and rhythm RESPIRATORY: Lungs clear to auscultation and percussion, no wheezing, no rubs GASTROINTESTINAL AND LIVER: Abdomen: Soft, non tenderness, non-distended, no hernias, no masses, no organomegaly, no ascites, no guarding, no rebound tenderness, normoactive bowel sounds. Rectal: Deferred. EXTREMITIES: BLE edema Result Diagram: 07/18/18 0555 07/18/18 0554 Results 24hrs Laboratory Tests Test 07/17/18 17:59 07/17/18 18:29 07/17/18 18:30 07/17/18 21:00 Bedside Glucose 190 Creatine Kinase < 20 L Creatine Kinase Index Creatinine 0.46 Kinase MB (Mass) Troponin I < 0.012 Prothrombin Time 14.3 Prothrombin Time 1.1 Ratio INR 1.10 International Normalized Ratio Activated 28.9 Partial Thrombop last Time Urine Color STRAW Urine Clarity CLEAR Urine pH 5.0 Urine Specific 1.008 [place] Urine Ketones NEGATIVE Urine Nitrite NEGATIVE Urine Bilirubin NEGATIVE Urine NEGATIVE Urobilinogen Urine Leukocyte NEGATIVE Esterase Urine Hemoglobin NEGATIVE Urine Random 26.31 Creatinine Urine Random 74 Sodium Urine Glucose NEGATIVE Urine Total 14.0 H Protein Test 07/17/18 21:18 07/18/18 00:44 07/18/18 05:26 07/18/18 05:54 Bedside Glucose 187 169 Creatine Kinase < 20 L Creatine Kinase Index Creatinine 0.44 Kinase MB (Mass) Troponin I < 0.012 Sodium Level 140 Potassium Level 3.2 L Chloride Level 93 L Carbon Dioxide 38 H Level Anion Gap 9 Blood Urea 76 H Nitrogen Creatinine 1.79 H Est Glomerular Filtrat Rate mL/min Glucose Level 140 Hemoglobin A1c 8.9 H Calcium Level 8.7 Phosphorus Level 3.9 Magnesium Level 2.0 Triglycerides 127 Level Cholesterol 94 L Level LDL Cholesterol, 43 Calculated HDL Cholesterol 26 L Cholesterol/HDL 3.6 Ratio Thyroid 0.634 Stimulating Hormone (TSH) Test 07/18/18 05:55 07/18/18 07:50 07/18/18 08:56 07/18/18 12:15 White Blood 7.2 Count Red Blood Count 3.30 L Hemoglobin 8.5 #L Hematocrit 27.0 L Mean Corpuscular 81.8 L Volume Mean Corpuscular 25.8 L Hemoglobin Mean Corpuscular 31.5 L Hemoglobin Mary Carmen nt Red Cell 14.6 H Distribution Width Platelet Count 312 Mean Platelet 10.8 H Volume Immature 0.600 H Granulocytes % Neutrophils % 66.6 Lymphocytes % 16.3 Monocytes % 13.4 H Eosinophils % 2.4 Basophils % 0.7 Nucleated Red 0.0 Blood Cells % Immature 0.040 H Granulocytes # Neutrophils # 4.8 Lymphocytes # 1.2 Monocytes # 1.0 H Eosinophils # 0.2 Basophils # 0.1 Nucleated Red 0.0 Blood Cells # Lab Scanned BLOOD TRANSFUSI Report ON Blood Gas Blood arterial Specimen Source Arterial Blood 07/18/2018 9:30: Date Drawn 54 AM Arterial Blood 7.451 H pH (Temp corrected) Arterial Blood 50.2 H pCO2 (Temp correct) Arterial Blood 53.3 *L pO2 (Temp corrected) Arterial Blood 34.2 H HCO3 Arterial Blood 9.0 H Base Excess Arterial Blood 87.8 L Oxygen Saturatio n Alexis Test ACCEPTAB Arterial Blood Right Radial Gas Puncture Site Arterial 0.6 Blood Carboxyhem oglobin Arterial Blood 0.2 Methemoglobin Blood Gas A-a O2 36.3 H Differential Oxyhemoglobin 87.1 L Percent Blood Gas 37.0 Temperature Blood Gas ROOM AIR Modality FiO2 21.0 Blood Gas I.ESQUIVEL RN Critical Value Read Back Blood Gas TM Notified Whom Blood Gas 07/18/2018 9:39: Notified Time 25 AM Bedside Glucose 78 Test 07/18/18 12:43 Bedside Glucose 112 Exam/Review of Systems Exam Vitals Vital Signs Date Temp Pulse Resp B/P (MAP) Pulse Ox O2 O2 Flow FiO2 Time Delivery Rate 07/18/18 82 13:16 07/18/18 98.3 18 114/53 96 Nasal 12:02 (73) Cannula 07/18/18 2.0 09:00 Intake and Output 07/17/18 07/17/18 07/18/18 1515:00 23:00 07:00 IntakeIntake Total 920 ml BalanceBalance 920 ml Results Results 24hrs Laboratory Tests Test 07/17/18 17:59 07/17/18 18:29 07/17/18 18:30 07/17/18 21:00 Bedside Glucose 190 Creatine Kinase < 20 L Creatine Kinase Index Creatinine 0.46 Kinase MB (Mass) Troponin I < 0.012 Prothrombin Time 14.3 Prothrombin Time 1.1 Ratio INR 1.10 International Normalized Ratio Activated 28.9 Partial Thrombop last Time Urine Color STRAW Urine Clarity CLEAR Urine pH 5.0 Urine Specific 1.008 [place] Urine Ketones NEGATIVE Urine Nitrite NEGATIVE Urine Bilirubin NEGATIVE Urine NEGATIVE Urobilinogen Urine Leukocyte NEGATIVE Esterase Urine Hemoglobin NEGATIVE Urine Random 26.31 Creatinine Urine Random 74 Sodium Urine Glucose NEGATIVE Urine Total 14.0 H Protein Test 07/17/18 21:18 07/18/18 00:44 07/18/18 05:26 07/18/18 05:54 Bedside Glucose 187 169 Creatine Kinase < 20 L Creatine Kinase Index Creatinine 0.44 Kinase MB (Mass) Troponin I < 0.012 Sodium Level 140 Potassium Level 3.2 L Chloride Level 93 L Carbon Dioxide 38 H Level Anion Gap 9 Blood Urea 76 H Nitrogen Creatinine 1.79 H Est Glomerular Filtrat Rate mL/min Glucose Level 140 Hemoglobin A1c 8.9 H Calcium Level 8.7 Phosphorus Level 3.9 Magnesium Level 2.0 Triglycerides 127 Level Cholesterol 94 L Level LDL Cholesterol, 43 Calculated HDL Cholesterol 26 L Cholesterol/HDL 3.6 Ratio Thyroid 0.634 Stimulating Hormone (TSH) Test 07/18/18 05:55 07/18/18 07:50 07/18/18 08:56 07/18/18 12:15 White Blood 7.2 Count Red Blood Count 3.30 L Hemoglobin 8.5 #L Hematocrit 27.0 L Mean Corpuscular 81.8 L Volume Mean Corpuscular 25.8 L Hemoglobin Mean Corpuscular 31.5 L Hemoglobin Mary Carmen nt Red Cell 14.6 H Distribution Width Platelet Count 312 Mean Platelet 10.8 H Volume Immature 0.600 H Granulocytes % Neutrophils % 66.6 Lymphocytes % 16.3 Monocytes % 13.4 H Eosinophils % 2.4 Basophils % 0.7 Nucleated Red 0.0 Blood Cells % Immature 0.040 H Granulocytes # Neutrophils # 4.8 Lymphocytes # 1.2 Monocytes # 1.0 H Eosinophils # 0.2 Basophils # 0.1 Nucleated Red 0.0 Blood Cells # Lab Scanned BLOOD TRANSFUSI Report ON Blood Gas Blood arterial Specimen Source Arterial Blood 07/18/2018 9:30: Date Drawn 54 AM Arterial Blood 7.451 H pH (Temp corrected) Arterial Blood 50.2 H pCO2 (Temp correct) Arterial Blood 53.3 *L pO2 (Temp corrected) Arterial Blood 34.2 H HCO3 Arterial Blood 9.0 H Base Excess Arterial Blood 87.8 L Oxygen Saturatio n Alexis Test ACCEPTAB Arterial Blood Right Radial Gas Puncture Site Arterial 0.6 Blood Carboxyhem oglobin Arterial Blood 0.2 Methemoglobin Blood Gas A-a O2 36.3 H Differential Oxyhemoglobin 87.1 L Percent Blood Gas 37.0 Temperature Blood Gas ROOM AIR Modality FiO2 21.0 Blood Gas BEATRIZ TOWNSEND Critical Value Read Back Blood Gas TM Notified Whom Blood Gas 07/18/2018 9:39: Notified Time 25 AM Bedside Glucose 78 Test 07/18/18 12:43 Bedside Glucose 112 Medications Medication Current Medications IV Flush (NS 3 ml) 3 ml PER PROTOCOL IV ; Start 07/17/18 at 15:30 Ondansetron HCl (Zofran Inj) 4 mg Q6H PRN IV NAUSEA/VOMITING; Start 07/17/18 at 15:30 Acetaminophen (Tylenol Tab) 650 mg Q6H PRN PO .PAIN 1-3 OR TEMP; Start 07/17/18 at 15:30 Acetaminophen/ Hydrocodone Bitart ([place] (5/325)) 1 tab Q6H PRN PO .MOD PAIN 4- 6; Start 07/17/18 at 15:30 Morphine Sulfate (morphine) 2 mg Q4H PRN IV .SEVERE PAIN 7-10; Start 07/17/18 at 15:30 Docusate Sodium (Colace) 100 mg Q12H PRN PO .CONSTIPATION; Start 07/17/18 at 15:30 Magnesium Hydroxide (Milk Of Mag) 30 ml DAILY PRN PO .CONSTIPATION; Start 07/17/18 at 15:30 Lorazepam (Ativan) 0.5 mg Q6H PRN IV ANXIETY; Start 07/17/18 at 15:30 Albuterol/ Ipratropium (Duoneb) 3 ml Q4H RESP THERAPY PRN HHN SHORTNESS OF BREATH; Start 07/17/18 at 15:30 Hydralazine HCl (Apresoline) 10 mg Q6H PRN IV ELEVATED BLOOD PRESSURE; Start 07/17/18 at 15:30 Nitroglycerin (Nitroglycerin (Sl Tab) 0.4 Mg) 1 tab Q5M PRN SL ANGINA; Start 07/17/18 at 15:30 Alprazolam (Xanax) 0.5 mg QHS PRN PO ANXIETY Last administered on 07/17/18at 23:17; Admin Dose 0.5 MG; Start 07/17/18 at 15:30 Atorvastatin Calcium (Lipitor) 20 mg QHS PO Last administered on 07/17/18at 21:19; Admin Dose 20 MG; Start 07/17/18 at 21:00 Carvedilol (Coreg) 3.125 mg BID PO Last administered on 07/18/18at 12:27; Admin Dose 3.125 MG; Start 07/17/18 at 21:00 Ferrous Sulfate (Ferrous Sulfate (Ec)) 325 mg BID PO Last administered on 07/18/18at 12:26; Admin Dose 325 MG; Start 07/17/18 at 21:00 Insulin Glargine (Lantus) 44 units QHS SC Last administered on 07/17/18at 21:30; Admin Dose 44 UNITS; Start 07/17/18 at 21:00 Metolazone (Zaroxolyn) 5 mg DAILY PO ; Start 07/18/18 at 09:00 Potassium Chloride (Klor-Con 10) 10 meq DAILY PO Last administered on 07/18/18at 12:29; Admin Dose 10 MEQ; Start 07/18/18 at 09:00 Zolpidem Tartrate (Ambien) 10 mg QHS PRN PO INSOMNIA Last administered on 07/18/18at 00:30; Admin Dose 10 MG; Start 07/17/18 at 15:30 Furosemide (Lasix) 40 mg BID DIURETICS IV Last administered on 07/18/18at 05:24; Admin Dose 40 MG; Start 07/17/18 at 18:00 Miscellaneous Information 1 ea NOTE XX ; Start 07/17/18 at 16:30 Glucose (Glutose) 15 gm Q15M PRN PO DECREASED GLUCOSE; Start 07/17/18 at 16:30 Glucose (Glutose) 22.5 gm Q15M PRN PO DECREASED GLUCOSE; Start 07/17/18 at 16:30 Dextrose (D50w Syringe) 25 ml Q15M PRN IV DECREASED GLUCOSE; Start 07/17/18 at 16:30 Dextrose (D50w Syringe) 50 ml Q15M PRN IV DECREASED GLUCOSE; Start 07/17/18 at 16:30 Glucagon (Glucagen) 1 mg Q15M PRN IM DECREASED GLUCOSE; Start 07/17/18 at 16:30 Glucose (Glutose) 15 gm Q15M PRN BUCCAL DECREASED GLUCOSE; Start 07/17/18 at 16:30 Pantoprazole (Protonix Tab) 40 mg BID@0600,1800 PO Last administered on 07/18/18at 05:24; Admin Dose 40 MG; Start 07/17/18 at 18:00 Insulin Aspart (Novolog Insulin Pen) NOVOLOG *MILD* ALGORI... Q6 SC Last administered on 07/18/18at 05:37; Admin Dose 1 UNIT; Start 07/18/18 at 06:00 ENZO CORLEY Jul 18, 2018 14:03
--- NOTE | 2018-07-18 17:16 | DS ---
Date/Time of Note Date/Time of Note DATE: 07/18/18 TIME: 17:16 Discharge Summary Admission/Discharge Info Admit Date/Time Jul 17, 2018 at 15:24 Discharge Date/Time Jul 18, 2018 at 15:59 Discharge Diagnosis pt left AMA Patient Condition: Serious Hospital Course S: Patient received PRBC transfusion yesterday. Seen by renal, GI, cardiology team yesterday. Presently refusing EGD. Patient is n.p.o. O: Vs - see below PHYSICAL EXAMINATION: GENERAL: lying in bed, family members at the bedside, in no acute distress. HEENT: Pupils are equal, round, reactive to light. Extraocular muscles are intact. NECK: Supple. No thyromegaly. LUNGS: Clear to auscultation bilaterally. CARDIOVASCULAR: S1, S2 heard. No rubs or gallops. ABDOMEN: Soft, nontender, nondistended, normal bowel sounds, no rebound or guarding. MUSCULOSKELETAL: A 1 to 2+ pitting edema bilateral lower extremities to the mid calves. NEUROLOGIC: No focal deficits. 2D echo: Conclusions: Technically difficult study. EF 55% Mild concentric left ventricular hypertrophy with normal systolic function. Mild biatrial enlargement. Severe calcific aortic stenosis, peak and mean gradients of 49 and 31 mmHg, calculated valve area 0.71 cm2. Mild tricuspid regurgitation and mild pulmonary hypertension. Dilated IVC that does not collapse consistent with elevated right atrial pressures. ASSESSMENT AND PLAN: 82-year-old female coming in with anemia, likely secondary to gastrointestinal bleed, also signs of acute tubular injury, acute congestive heart failure exacerbation. 1. Anemia: Hemoglobin improved after PRBC transfusion yesterday. Anemia likely secondary to gastrointestinal bleed given the patient's prior history of gastric ulcer and 6 EGDs in the last year for treatment of this. -Monitor CBC, follow-up recognitions from GI consult as well-patient presently refusing EGD. -Continue PT, OT and speech therapy consult. -Follow-up results of stool occult test -Continue to hold all anticoagulants. 2. Acute kidney injury-creatinine slightly improved today, on IV Lasix again, the patient denies any prior history of kidney issues. At home she is on 80 mg of Lasix p.o. daily. -For now continue Lasix IV b.i.d, Monitor ins and outs. -Follow-up renal recommendations, Monitor BUN and creatinine levels. 3. Congestive heart failure-Echo results noted, patient does have severe aortic stenosis, EF 55%, on admission the BNP 6000. The patient does see a machinery mechanic in [place] for treatment of congestive heart failure in the past. No prior history of any stroke or heart attack per patient. Patient also has history of chronic A. fib -Continue to keep the bed head of the bed greater than 30 degrees. Monitor ins and outs and daily weights. - Keep her on low-dose beta elliott and IV Lasix, morphine p.r.n., oxygen as needed. Nitroglycerin p.r.n. -Follow-up recommendations from cardiology consult. -Monitor rate controlled A. fib for now (obviously not on anticoagulants presently given GI bleeding issues) 4. History of high cholesterol. - Follow up lipid panel. -Continue statin. 5. History of diabetes -A1c = 8.9. - Continue home insulins, sliding scale insulin. 6. Deep venous thrombosis prophylaxis. Hold all anticoagulants. Continue SCDs. Home Meds Reported Medications Zolpidem Tartrate* (Zolpidem Tartrate*) 10 Mg Tablet, 10 MG PO QHS PRN for INSOMNIA, #30 TAB 07/17/18 Insulin Lispro (Humalog Kwikpen U-100) 100 Unit/1 Ml Insuln.pen, 8 UNIT SQ BID WITH MEALS, EA 07/17/18 Insulin Glargine* (Lantus*) 100 Unit/Ml Soln, 44 UNIT SC QHS, #1 VIAL 07/17/18 Furosemide* (Furosemide*) 80 Mg Tablet, 80 MG PO DAILY, #30 TAB 07/17/18 Metolazone* (Metolazone*) 5 Mg Tablet, 5 MG PO DAILY, TAB 07/17/18 Potassium Chloride* (K-Dur*) 10 Meq Tab.prt.sr, 10 MEQ PO DAILY, TAB 07/17/18 Alprazolam* (Alprazolam*) 0.5 Mg Tablet, 0.5 MG PO QHS PRN for ANXIETY, TAB 07/17/18 Atorvastatin Calcium* (Atorvastatin Calcium*) 20 Mg Tablet, 20 MG PO QHS, #30 TAB 07/17/18 Ferrous Sulfate* (Ferrous Sulfate*) 325 Mg Tabec, 325 MG PO BID, TAB 07/17/18 Sertraline Hcl* (Sertraline Hcl*) 50 Mg Tablet, 50 MG PO DAILY, #30 TAB 07/17/18 Carvedilol* (Carvedilol*) 3.125 Mg Tablet, 3.125 MG PO BID, #60 TAB 07/17/18 Pantoprazole* (Protonix*) 40 Mg Tablet.dr, 40 MG PO DAILY, TAB 07/17/18 Primary Care Provider Care Physician No Primary Time spent on discharge: < 30 minutes Pending Labs Laboratory Tests Test 07/17/18 17:59 07/17/18 18:29 07/17/18 18:30 07/17/18 21:00 Bedside 190 Glucose mg/dL (70-220) Creatine < 20 Kinase IU/L (23-200) Creatine Kinase Index Creatinine 0.46 Kinase MB ng/ml (0.0-2.4 (Mass) ) Troponin I < 0.012 ng/ml (0.000-0 .120) Prothrombin 14.3 Time Sec (11.9-14.9 ) Prothrombin 1.1 Time Ratio INR 1.10 International Normalized Rati o Activated 28.9 Partial Thrombo Sec (23.0-35.0 plast Time ) Urine Color STRAW (YELLOW) Urine Clarity CLEAR (CLEAR) Urine pH 5.0 (5.0-9.0) Urine Specific 1.008 (1.003-1 [place] .030) Urine Ketones NEGATIVE mg/dL (NEGATIV E) Urine Nitrite NEGATIVE mg/dL (NEGATIV E) Urine NEGATIVE Bilirubin mg/dL (NEGATIV E) Urine NEGATIVE Urobilinogen mg/dL (NEGATIV E) Urine Leukocyte NEGATIVE Amandeep/u Esterase l Urine NEGATIVE Hemoglobin mg/dL (NEGATIV E) Urine Random 26.31 Creatinine mg/dl (20-320) Urine Random 74 Sodium mmol/L (30-90) Urine Glucose NEGATIVE mg/dL (NEGATIV E) Urine Total 14.0 Protein mg/dl (0.0-11. 9) Test 07/17/18 21:18 07/18/18 00:44 07/18/18 05:26 07/18/18 05:54 Bedside 187 169 Glucose mg/dL (70-220) mg/dL (70-220) Creatine < 20 Kinase IU/L (23-200) Creatine Kinase Index Creatinine 0.44 Kinase MB ng/ml (0.0-2.4 (Mass) ) Troponin I < 0.012 ng/ml (0.000-0 .120) Sodium Level 140 mmol/L (135-14 4) Potassium 3.2 Level mmol/L (3.5-5. 1) Chloride Level 93 mmol/L (97-110 ) Carbon Dioxide 38 Level mmol/L (21-31) Anion Gap 9 (5-13) Blood Urea 76 Nitrogen mg/dl (7-20) Creatinine 1.79 mg/dl (0.44-1. 00) Est Glomerular mL/min (>60) Filtrat Rate mL/min Glucose Level 140 mg/dl (70-220) Hemoglobin A1c 8.9 % (0-5.9) Calcium Level 8.7 mg/dl (8.4-10. 2) Phosphorus 3.9 Level mg/dl (2.5-4.9 ) Magnesium 2.0 Level mg/dl (1.7-2.5 ) Triglycerides 127 Level mg/dl (0-149) Cholesterol 94 Level mg/dl (100-200 ) LDL 43 mg/dl Cholesterol, Calculated HDL 26 Cholesterol mg/dl (33-92) Cholesterol/HDL 3.6 RATIO Ratio Thyroid 0.634 Stimulating MIU/L (0.465-4 Hormone (TSH) .680) Test 07/18/18 05:55 07/18/18 07:50 07/18/18 08:56 07/18/18 12:15 White Blood 7.2 Count 10^3/ul (4.8-10 .8) Red Blood 3.30 Count 10^6/ul (4.20-5 .40) Hemoglobin 8.5 g/dl (12.0-16.0 ) Hematocrit 27.0 % (37.0-47.0) Mean 81.8 Corpuscular fl (82.0-101.0) Volume Mean 25.8 Corpuscular pg (29.0-33.0) Hemoglobin Mean 31.5 Corpuscular g/dl (32.0-37.0 Hemoglobin Conc ) ent Red Cell 14.6 Distribution % (11.5-14.5) Width Platelet Count 312 10^3/UL (140-41 5) Mean Platelet 10.8 Volume fl (7.4-10.4) Immature 0.600 Granulocytes % % (0.001-0.429) Neutrophils % 66.6 % (39.0-77.0) Lymphocytes % 16.3 % (15.0-51.0) Monocytes % 13.4 % (0.0-11.0) Eosinophils % 2.4 % (0.0-7.0) Basophils % 0.7 % (0.0-2.0) Nucleated Red 0.0 Blood Cells % /100WBC (0.0-0. 0) Immature 0.040 Granulocytes # 10^3/ul (0.0-0. 031) Neutrophils # 4.8 10^3/ul (1.6-7. 5) Lymphocytes # 1.2 10^3/ul (0.8-2. 9) Monocytes # 1.0 10^3/ul (0.3-0. 9) Eosinophils # 0.2 10^3/ul (0.0-0. 5) Basophils # 0.1 10^3/ul (0.0-0. 1) Nucleated Red 0.0 Blood Cells # 10^3/ul (0.0-0. 0) Lab Scanned BLOOD TRANSFUS Report ION Blood Gas Blood arterial Specimen Source Arterial Blood 07/18/2018 9:30 Date Drawn :54 AM Arterial Blood 7.451 (7.350-7 pH .450) (Temp corrected ) Arterial Blood 50.2 pCO2 mmhg (35-45) (Temp correct) Arterial Blood 53.3 pO2 mmHG (80-90.0) (Temp corrected ) Arterial Blood 34.2 HCO3 mmol/L (22.0-2 6.0) Arterial Blood 9.0 Base Excess mmol/L (-3.0-3 ) Arterial Blood 87.8 Oxygen Saturati mmHG (95.0-100 on .0) Alexis Test ACCEPTAB Arterial Blood Right Radial Gas Puncture Site Arterial 0.6 Blood Carboxyhe % (0.0-3.0) moglobin Arterial Blood 0.2 Methemoglobin % (0.0-1.5) Blood Gas A-a 36.3 O2 mmHg (7.0-24.0 Differential ) Oxyhemoglobin 87.1 Percent % (93.0-99.0) Blood Gas 37.0 C Temperature Blood Gas ROOM AIR Modality FiO2 21.0 % Blood Gas BEATRIZ TOWNSEND Critical Value Read Back Blood Gas TM Notified Whom Blood Gas 07/18/2018 9:39 Notified Time :25 AM Bedside 78 Glucose mg/dL (70-220) Test 07/18/18 12:43 Bedside 112 Glucose mg/dL (70-220) KARYN NAVARRO Jul 18, 2018 17:16
== END 2018-07-18 15:59 | disposition left against medical advice (07) | DRG 377 ==
LOC: E/R 13:01 → TEL 15:24
PROVIDERS: ADMIT Hospitalist; ATTEND Hospitalist
PROC: 30233N1 Transfusion of Nonautologous Red Blood Cells into Peripheral Vein, Percutaneous Approach (ICD-10-PCS; principal; 2018-07-17)
DX: K25.4 Chronic or unspecified gastric ulcer with hemorrhage (principal); I50.21 Acute systolic (congestive) heart failure; D62 Acute posthemorrhagic anemia; N17.9 Acute kidney failure, unspecified; I13.0 Hypertensive heart and chronic kidney disease with heart failure and stage 1 through stage 4 chronic kidney disease, or unspecified chronic kidney disease; I48.2 Chronic atrial fibrillation; E11.22 Type 2 diabetes mellitus with diabetic chronic kidney disease; I35.0 Nonrheumatic aortic (valve) stenosis; E78.5 Hyperlipidemia, unspecified; I25.10 Atherosclerotic heart disease of native coronary artery without angina pectoris; I12.9 Hypertensive chronic kidney disease with stage 1 through stage 4 chronic kidney disease, or unspecified chronic kidney disease; N18.9 Chronic kidney disease, unspecified; E87.6 Hypokalemia; Z79.4 Long term (current) use of insulin
CPT/HCPCS: 36415; 36430; 36600; 71045; 76775; 80048; 80061; 81003; 82043; 82550; 82553; 82803; 82962; 83036; 83735; 83880; 84100; 84155; 84300; 84439; 84443; 84484; 85025; 85610; 85730; 86850; 86900; 86901; 86920; 87086; 93005; 93306; 97161; 97167; J1815; J1940; P9016

== ENCOUNTER 2018-12-20 19:28 | Inpatient (IN) | payer MEDICARE, OTHER ==
[~2018-12-20] VITALS: Ht 162.6 cm; Wt 104.1 kg
[~2018-12-20 19:28] MED LIST: ALPR0.5T6 PO; ATOR20TA38 PO; CARV3.1260 PO; FER325 PO; FURO80TA3 PO; INSU100I12 SQ; LANT3I SC; METO5TAB65 PO; PANT40TA3 PO; POTA10TA37 PO; SERT50TA6 PO; ZOLP10TA5 PO
[2018-12-20] MEDS ORDERED: NITROGLYCERIN 2% 1 GM OINT PKT TD STA (19:36)
[2018-12-20] MEDS ORDERED: ASPIRIN 81 MG TAB PO STA (19:36)
[2018-12-20] MEDS ORDERED: FUROSEMIDE 40 MG INJ IV ONE (20:00)
[2018-12-20] MEDS ORDERED: NITROGLYCERIN (SL) 0.4 MG TAB SL PRN ×2 (20:00→23:30)
[2018-12-20] MEDS ORDERED: ACETAMINOPHEN 325 MG TAB PO PRN ×2 (22:00→23:30)
[2018-12-20] MEDS ORDERED: ONDANSETRON 4 MG INJ IV PRN ×2 (22:00→23:30)
[2018-12-20] MEDS ORDERED: NACL 0.9% 3 ML SYG IV SCH (23:30)
[2018-12-20] MEDS ORDERED: ZOLPIDEM 5 MG TAB PO PRN (23:30)
[2018-12-20] MEDS ORDERED: ALPRAZOLAM 0.5 MG TAB PO PRN (23:30)
[2018-12-20] MEDS ORDERED: ALBUTEROL 0.083% (NEB) 2.5 MG/3 ML AMP NEB PRN (23:30)
[2018-12-21] VITALS (7 sets, daily range): BP systolic 90–103; BP diastolic 48–59; PULSE 68–97; RESP 18–20; Ht 162.6 cm; Wt 104.1 kg
[2018-12-21] MEDS ORDERED: GLUCOSE GEL 15 GRAM TUBE BUCCAL PRN (06:00)
[2018-12-21] MEDS ORDERED: GLUCAGON 1 MG INJ IM PRN (06:00)
[2018-12-21] MEDS ORDERED: GLUCOSE GEL 15 GRAM TUBE PO PRN ×2 (06:00)
[2018-12-21] MEDS ORDERED: DEXTROSE 50% 50 ML SYRINGE IV PRN ×2 (06:00)
[2018-12-21] MEDS: PANTOPRAZOLE (EC) 40 MG TAB PO SCH (06:19)
[2018-12-21] MEDS: FUROSEMIDE 40 MG INJ IV SCH (06:19)
[2018-12-21] MEDS: INSULIN ASPART [NOVOLOG] 3 ML PEN SC SCH ×4 (08:17→21:00)
[2018-12-21] MEDS ORDERED: METOLAZONE 5 MG TAB PO SCH (09:00)
[2018-12-21] MEDS: SERTRALINE 50 MG TAB PO SCH (10:01)
[2018-12-21] MEDS: FERROUS SULFATE (EC) 325 MG TAB PO SCH ×2 (10:02→20:28)
[2018-12-21] MEDS: POTASSIUM CHLORIDE (SR) 10 MEQ TAB PO SCH (10:04)
[2018-12-21] MEDS: HEPARIN 5,000 UNIT/1 ML VIAL SC SCH ×2 (10:10→20:28)
[2018-12-21] MEDS: HYDROCODONE/APAP (5/325) TAB PO PRN ×2 (11:56→22:42)
[2018-12-21] MEDS ORDERED: SOD CHLORIDE 0.9% 250 ML IV* ONE (13:33)
[2018-12-21] MEDS: ATORVASTATIN 20 MG TAB PO SCH (20:29)
[2018-12-21] MEDS: INSULIN GLARGINE [LANTus] (100 UNITS/ML) SYG SC SCH (21:01)
[2018-12-22] MEDS: ACCU-CHEK XX SCH (02:11)
[2018-12-22 03:18] VITALS: BP 95/50; PULSE 97; RESP 20
[2018-12-22] MEDS: HYDROCODONE/APAP (5/325) TAB PO PRN ×5 (04:38→18:42)
[2018-12-22] MEDS: PANTOPRAZOLE (EC) 40 MG TAB PO SCH (06:33)
[2018-12-22] MEDS: FUROSEMIDE 40 MG INJ IV SCH (06:36)
[2018-12-22 07:22] VITALS: BP 96/56; PULSE 96; RESP 19
[2018-12-22] MEDS: SERTRALINE 50 MG TAB PO SCH (08:14)
[2018-12-22] MEDS: POTASSIUM CHLORIDE (SR) 10 MEQ TAB PO SCH (08:14)
[2018-12-22] MEDS: FERROUS SULFATE (EC) 325 MG TAB PO SCH ×2 (08:14→22:57)
[2018-12-22] MEDS: HEPARIN 5,000 UNIT/1 ML VIAL SC SCH (08:15)
[2018-12-22] MEDS: INSULIN ASPART [NOVOLOG] 3 ML PEN SC SCH ×5 (08:21→21:04)
[2018-12-22 11:32] VITALS: BP 111/50; PULSE 93; RESP 20
[2018-12-22] MEDS ORDERED: morphine 2 MG INJ IV STA (13:46)
[2018-12-22] MEDS ORDERED: BACLOFEN 10 MG TAB PO SCH (15:30)
[2018-12-22 16:13] VITALS: BP 110/56; PULSE 98; RESP 19
[2018-12-22] MEDS: METOPROLOL 25 MG TAB PO SCH ×2 (16:21→22:50)
[2018-12-22 20:00] VITALS: BP 109/55; PULSE 92; RESP 17
[2018-12-22] MEDS ORDERED: MAGNESIUM HYDROXIDE 30ML CUP PO PRN (20:00)
[2018-12-22] MEDS ORDERED: MAGNESIUM HYDROXIDE 30ML CUP PO ONE (20:00)
[2018-12-22] MEDS: BACLOFEN 10 MG TAB PO SCH (21:00)
[2018-12-22] MEDS: INSULIN GLARGINE [LANTus] (100 UNITS/ML) SYG SC SCH (21:04)
[2018-12-22] MEDS: ATORVASTATIN 20 MG TAB PO SCH (23:16)
[2018-12-23] VITALS (7 sets, daily range): BP systolic 93–118; BP diastolic 44–56; PULSE 84–104; RESP 20
[2018-12-23] MEDS: ACCU-CHEK XX SCH ×2 (02:37)
[2018-12-23] MEDS: PANTOPRAZOLE (EC) 40 MG TAB PO SCH (05:26)
[2018-12-23] MEDS: INSULIN ASPART [NOVOLOG] 3 ML PEN SC SCH ×7 (07:39→20:34)
[2018-12-23] MEDS: METOPROLOL 25 MG TAB PO SCH ×2 (08:00→20:33)
[2018-12-23] MEDS: SERTRALINE 50 MG TAB PO SCH (08:24)
[2018-12-23] MEDS: BACLOFEN 10 MG TAB PO SCH ×3 (08:24→20:33)
[2018-12-23] MEDS: FERROUS SULFATE (EC) 325 MG TAB PO SCH (08:24)
[2018-12-23] MEDS: POTASSIUM CHLORIDE (SR) 10 MEQ TAB PO SCH (08:24)
[2018-12-23] MEDS: CEFTRIAXONE 1 GM/50 ML (PMX) 50 ML IVPB SCH (11:33)
[2018-12-23] MEDS: HYDROmorphONE 0.5 MG/0.5 ML SYG IV PRN ×2 (11:34→20:58)
[2018-12-23] MEDS: SOD FERRIC GLUC COMPLX 125 MG in SOD CHLORIDE 0.9% 100 ML IVPB SCH (12:50)
[2018-12-23] MEDS: ATORVASTATIN 20 MG TAB PO SCH (20:33)
[2018-12-23] MEDS ORDERED: INSULIN GLARGINE [LANTus] (100 UNITS/ML) SYG SC SCH (21:00)
[2018-12-23] MEDS ORDERED: LEVALBUTEROL (NEB) 0.63 MG/3 ML AMP HHN PRN (22:30)
[2018-12-23] MEDS ORDERED: IPRATROPIUM (NEB) 0.5 MG/2.5 ML AMP HHN PRN (22:30)
[2018-12-23] MEDS ORDERED: ACETYLCYSTEINE 20% 4 ML VIAL NEB PRN (22:30)
[2018-12-23] MEDS ORDERED: ACETYLCYSTEINE 20% 4 ML VIAL NEB SCH (23:00)
[2018-12-24] VITALS (17 sets, daily range): BP systolic 102–143; BP diastolic 49–65; PULSE 70–110; RESP 17–20
[2018-12-24] MEDS: INSULIN ASPART [NOVOLOG] 3 ML PEN SC SCH ×7 (01:00→17:15)
[2018-12-24] MEDS: ACCU-CHEK XX SCH (02:00)
[2018-12-24] MEDS ORDERED: ACCU-CHEK XX SCH (02:00)
[2018-12-24] MEDS: PANTOPRAZOLE (EC) 40 MG TAB PO SCH (05:07)
[2018-12-24] MEDS ORDERED: FUROSEMIDE 40 MG INJ IV ONE (06:30)
[2018-12-24] MEDS: BACLOFEN 10 MG TAB PO SCH (08:27)
[2018-12-24] MEDS: POTASSIUM CHLORIDE (SR) 10 MEQ TAB PO SCH (08:27)
[2018-12-24] MEDS: METOPROLOL 25 MG TAB PO SCH (08:27)
[2018-12-24] MEDS: SERTRALINE 50 MG TAB PO SCH (08:27)
[2018-12-24] MEDS: CEFTRIAXONE 1 GM/50 ML (PMX) 50 ML IVPB SCH (11:24)
[2018-12-24] MEDS: SOD FERRIC GLUC COMPLX 125 MG in SOD CHLORIDE 0.9% 100 ML IVPB SCH (12:12)
[2018-12-24] MEDS ORDERED: IPRATROPIUM (NEB) 0.5 MG/2.5 ML AMP HHN SCH (21:00)
[2018-12-24] MEDS ORDERED: LORAZEPAM 2 MG INJ IV PRN (21:00)
[2018-12-24] MEDS ORDERED: ACETYLCYSTEINE 20% 4 ML VIAL NEB SCH (21:00)
[2018-12-24] MEDS ORDERED: ALBUTEROL 0.083% (NEB) 2.5 MG/3 ML AMP NEB SCH (21:00)
[2018-12-24] MEDS ORDERED: ARTIFICIAL TEARS 15 ML OPH BOTH EYES PRN (21:00)
[2018-12-24] MEDS ORDERED: ATROPINE 1% 5 ML OPH SL PRN (21:00)
[2018-12-24] MEDS ORDERED: ACETAMINOPHEN 650 MG SUPP PR PRN (21:00)
[2018-12-24] MEDS ORDERED: DIMETHICONE STICK TOP PRN (21:00)
[2018-12-24] MEDS ORDERED: ONDANSETRON 4 MG INJ IV PRN (21:00)
[2018-12-24] MEDS ORDERED: LEVALBUTEROL (NEB) 0.63 MG/3 ML AMP HHN SCH (21:00)
[2018-12-24] MEDS: morphine 2 MG INJ IV PRN (22:36)
[2018-12-24] MEDS ORDERED: IPRATROPIUM (NEB) 0.5 MG/2.5 ML AMP HHN PRN (23:00)
[2018-12-24] MEDS ORDERED: ACETYLCYSTEINE 20% 4 ML VIAL NEB PRN (23:00)
[2018-12-24] MEDS ORDERED: LEVALBUTEROL (NEB) 0.63 MG/3 ML AMP HHN PRN (23:00)
[2018-12-25] MEDS: LEVALBUTEROL (NEB) 0.63 MG/3 ML AMP HHN SCH ×6 (01:22→20:04)
[2018-12-25] MEDS: IPRATROPIUM (NEB) 0.5 MG/2.5 ML AMP HHN SCH ×6 (01:22→20:05)
[2018-12-25] MEDS: ACETYLCYSTEINE 20% 4 ML VIAL NEB SCH ×6 (01:32→20:05)
[2018-12-25] MEDS: morphine 2 MG INJ IV PRN ×4 (01:50→14:28)
[2018-12-25 07:14] VITALS: BP 132/59; PULSE 117; RESP 24
[2018-12-25 12:14] VITALS: BP 102/53; PULSE 117
[2018-12-25] MEDS: morphine (DRIP) 100 MG/100 ML 100 ML IV SCH ×3 (15:50→21:50)
[2018-12-25 20:31] VITALS: BP 111/56; PULSE 109; RESP 18
[2018-12-25 21:00] VITALS: RESP 14
[2018-12-26 00:08] VITALS: BP 111/54; PULSE 127; RESP 16
[2018-12-26 01:23] VITALS: RESP 5
[2018-12-26] MEDS: IPRATROPIUM (NEB) 0.5 MG/2.5 ML AMP HHN SCH ×6 (01:31→20:11)
[2018-12-26] MEDS: ACETYLCYSTEINE 20% 4 ML VIAL NEB SCH ×6 (01:31→20:11)
[2018-12-26] MEDS: LEVALBUTEROL (NEB) 0.63 MG/3 ML AMP HHN SCH ×6 (01:32→20:11)
[2018-12-26 04:01] VITALS: BP 109/56; PULSE 109; RESP 12
[2018-12-26] MEDS: morphine (DRIP) 100 MG/100 ML 100 ML IV SCH ×2 (16:09→18:44)
[2018-12-26 20:00] VITALS: BP 88/44; PULSE 69; RESP 4
[2018-12-27] VITALS: BP 82/35; PULSE 115; RESP 4
[2018-12-27] MEDS: ACETYLCYSTEINE 20% 4 ML VIAL NEB SCH ×5 (01:07→16:47)
[2018-12-27] MEDS: LEVALBUTEROL (NEB) 0.63 MG/3 ML AMP HHN SCH ×5 (01:07→16:47)
[2018-12-27] MEDS: IPRATROPIUM (NEB) 0.5 MG/2.5 ML AMP HHN SCH ×5 (01:07→16:47)
[2018-12-27 04:00] VITALS: BP 88/51; PULSE 108; RESP 4
[2018-12-27 07:13] VITALS: BP 83/35; PULSE 109; RESP 16
[2018-12-27] MEDS: morphine (DRIP) 100 MG/100 ML 100 ML IV SCH (15:31)
[2018-12-27 19:24] VITALS: BP 80/42; PULSE 108; RESP 14
== END 2018-12-28 07:58 | disposition expired | DRG 291 ==
LOC: E/R 19:28 → TEL 21:39 → CANRESERV 23:03 → E/R 23:58
PROVIDERS: ADMIT Internal Medicine; ATTEND Internal Medicine
PROC: 30233N1 Transfusion of Nonautologous Red Blood Cells into Peripheral Vein, Percutaneous Approach (ICD-10-PCS; 2018-12-21)
PROC: 4A033R1 Measurement of Arterial Saturation, Peripheral, Percutaneous Approach (ICD-10-PCS; principal; 2018-12-23)
PROC: 5A09457 Assistance with Respiratory Ventilation, 24-96 Consecutive Hours, Continuous Positive Airway Pressure (ICD-10-PCS; 2018-12-23)
DX: I13.0 Hypertensive heart and chronic kidney disease with heart failure and stage 1 through stage 4 chronic kidney disease, or unspecified chronic kidney disease (principal); I50.33 Acute on chronic diastolic (congestive) heart failure; J18.9 Pneumonia, unspecified organism; J96.00 Acute respiratory failure, unspecified whether with hypoxia or hypercapnia; E87.3 Alkalosis; N17.9 Acute kidney failure, unspecified; N18.4 Chronic kidney disease, stage 4 (severe); E87.1 Hypo-osmolality and hyponatremia; Z66 Do not resuscitate; E11.22 Type 2 diabetes mellitus with diabetic chronic kidney disease; E66.9 Obesity, unspecified; Z68.39 Body mass index [BMI] 39.0-39.9, adult; I35.0 Nonrheumatic aortic (valve) stenosis; E78.5 Hyperlipidemia, unspecified; I48.91 Unspecified atrial fibrillation; F99 Mental disorder, not otherwise specified; D63.1 Anemia in chronic kidney disease; D50.0 Iron deficiency anemia secondary to blood loss (chronic); Z79.4 Long term (current) use of insulin; Z87.11 Personal history of peptic ulcer disease; Z86.73 Personal history of transient ischemic attack (TIA), and cerebral infarction without residual deficits
CPT/HCPCS: 36415; 36430; 36600; 70450; 71045; 73700; 80048; 80053; 80061; 81001; 81003; 82043; 82550; 82553; 82803; 82962; 83036; 83735; 83880; 84100; 84155; 84300; 84443; 84484; 85025; 85610; 85730; 86850; 86900; 86901; 86920; 87070; 93005; 93306; 93971; 94640; 94660; 94664; 96374; 97161; J0696; J1170; J1644; J1815; J1940; J2060; J2270; J2916; J7040; P9016